=== PATIENT | female | born 1930 | race Caucasian/White ===

== ENCOUNTER → 2016-08-20 | Outpatient (CLI) | payer MEDICARE, OTHER ==
[~2016-08-20] VITALS: Ht 154.9 cm; Wt 52.0 kg
[~2016-08-20] MED LIST: ACET-3088 PO; APIX2.5T PO; ATOR40TA64 PO; CALC1TAB PO; CALC600T12 PO; CITA20TA9 PO; FERR-70 PO; GUAI-1166 PO; LEVO100T12 PO; LORA10TA7 PO; METO25TA6 PO; MIDO2.5T PO; MOME17SP2 EA NOSTRIL; NAPR375T4 PO; OMEP20CA10 PO
== END ==
LOC: RC 09:59
PROVIDERS: ATTEND Internal Medicine Cardiovascular Disease
DX: I48.0 Paroxysmal atrial fibrillation (principal); R94.2 Abnormal results of pulmonary function studies
CPT/HCPCS: 94010

== ENCOUNTER 2016-09-04 10:36 | Day surgery (SDC) | payer MEDICARE, OTHER ==
[~2016-09-04] VITALS: Ht 152.4 cm; Wt 50.8 kg
--- OUTSIDE RECORDS SUMMARY | 2016-09-04 10:42 | XMS REPORT | Continuity of Care Document ---
Author Author [facility] Organization [facility] Address Unknown Phone Unavailable Support Name Relationship Address Phone JESENIA CAMACHO DO Caregiver [address] [place] [address] Unavailable SEBASTIÁN RANDALL MD Caregiver Unknown Unavailable MARCINIGELVIKTOR Next Of Kin [address] [place] [address] Insurance Providers Guarantor Suzette Gomez Address [address] [place] [address] Email DENIED/NO TO PT PORT 16 Payer Eve[place] Policy Number [id number] Subscriber's Name Suzette Gomez Relationship 18 Self Group Number [id number] Payer Medicare Policy Number [id number] Subscriber's Name GuruSuzette Relationship 18 Self Advance Directives Directive Response Recorded Date/Time Ordered Resuscitation Status Full Code, unverified 08/06/16 1:45pm Resuscitation Documents on File Yes 08/07/16 1:05pm DPOA for Healthcare Only Yes 08/07/16 1:05pm Living Will Yes 08/07/16 1:05pm Problems Active Problems Medical Problem Onset Date Status Acute blood loss anemia Unknown Acute Constipation Unknown Acute Constipation Unknown Acute DJD (degenerative joint disease) Unknown Chronic Depression Unknown Chronic Fracture of femoral neck, left, closed Unknown Acute Generalized weakness Unknown Acute Hip pain, acute Unknown Acute History of hemiarthroplasty of left hip 11/09/2014 Acute History of irregular heartbeat Unknown Chronic History of irregular heartbeat Unknown Acute Hyperlipidemia Unknown Chronic Hypokalemia Unknown Acute Hyponatremia Unknown Chronic Hypotension Unknown Resolved Hypothyroidism Unknown Chronic Hypoxia Unknown Acute Leg cramps Unknown Acute Leg cramps Unknown Acute Nausea after anesthesia Unknown Resolved Orthostatic dizziness Unknown Acute Rapid heart rate Unknown Acute Shortness of breath Unknown Acute Past Problems Medical Problem Onset Date Cervical radiculopathy Unknown Left upper extremity numbness Unknown Patient left without being seen Unknown Medications Current Home Medications Medication Dose Units Route Directions Days Qty Instructions Start Date Apixaban (Eliquis) 2.5 Mg Tablet 1 Tab Oral Daily 08/06/16 Atorvastatin Calcium 40 Mg Tablet 1 Tab Oral Bedtime 08/06/16 Calcium Carbonate (Calcium) 600 Mg Tablet 2 Tab Oral Daily Calcium Carbonate/Vitamin D3 (Caltrate 600 + D Tablet) 1 Each Tablet 1 Tab Oral Twice A Day 08/06/16 Citalopram Hydrobromide (Citalopram Hbr) 20 Mg Tablet 20 Mg Oral Daily 02/15/16 Ferrous Sulfate 325 Mg Tablet 325 Mg Oral Daily 01/19/15 Guaifenesin/Dextromethorphan (Robitussin Fcbni-Jjoyq-Elck Dm) 1 Each Capsule 1 Cap Oral As Needed 02/15/16 Levothyroxine Sodium 100 Mcg Tablet 100 Mg Oral Before Breakfast 02/15/16 Loratadine 10 Mg Tablet 10 Mg Oral Before Breakfast Take 1 tablet, by mouth, one time a day (before breakfast). 08/06/16 Metoprolol Tartrate 25 Mg Tablet 25 Mg Oral Twice A Day 01/19/15 Midodrine Hcl 2.5 Mg Tablet 2.5 Mg Oral Daily 02/26/14 Mometasone Furoate (Nasonex) 120 [place]/17 G [place] 2 [place] Each Nostril Daily 08/06/16 Naproxen 375 Mg Tablet 1 Tab Oral Daily 08/06/16 Omeprazole 20 Mg Capsule.dr 20 Mg Oral Before Breakfast Take 1 capsule, by mouth, one time a day (before breakfast). 08/06/16 Past Home Medications Medication Directions Ordered Status Aspirin 81 Mg Tab.chew, 1 Tab Oral Daily 11/09/14 Discontinued Atorvastatin Calcium 10 Mg Tablet, 10 Mg Oral Bedtime 11/09/14 Discontinued Cyclobenzaprine Hcl 10 Mg Tablet, 1 Tab Oral Bedtime 06/28/10 Discontinued Enoxaparin Sodium (Lovenox) 40 Mg/0.4 Ml Inj, 40 Mg Sub-Q Daily 11/13/14 Discontinued Escitalopram Oxalate (Lexapro) 20 Mg Tablet, 1 Tab Oral Daily 06/28/10 Discontinued Hydrocodone/Acetaminophen (Lortab 5-325 Mg Tablet) 1 Each Tablet, 1 Tab Oral Every 6 Hours as needed for Pain 02/26/14 Discontinued Loratadine 10 Mg Tablet, 10 Mg Oral Daily 11/09/14 Discontinued Naproxen (Naprosyn) 500 Mg Tablet, 1 Tab Oral Twice A Day as needed for Pain 06/28/10 Discontinued Ondansetron Hcl/Pf (Ondansetron Hcl 4 Mg/2 Ml Vial) 4 Mg/2 Ml Vial, 4 Mg Intraven Every 6 Hours as needed for Nausea &/Or Vomiting 11/13/14 Discontinued Risedronate (Actonel) 35 Mg Tablet, 1 Tab Oral Weekly 06/28/10 Discontinued Social History Social History Problem Response Recorded Date/Time Onset Date Status Chewing Tobacco Status No 08/06/2016 1:00pm Not Applicable Not Applicable Hx Substance Use No 08/06/2016 1:00pm Not Applicable Not Applicable Hx Alcohol Use No 08/06/2016 1:00pm Not Applicable Not Applicable Has the pt used tobacco in the last 12 months No 08/06/2016 1:00pm Not Applicable Not Applicable Tobacco Usage none 11/14/2014 9:33am Not Applicable Not Applicable Query Response Start Date Stop Date Smoking Status Never smoker Hospital Discharge Instructions No hospital discharge instructions. Plan of Care Discharge Date 08/07/16 4:40pm Prescriptions See Medication Section Functional Status Query Response Date Recorded Ability to complete ADL's impeded by No change August 07, 2016 1:05pm Allergies, Adverse Reactions, Alerts Allergen Type Severity Reaction Status Last Updated No Known Drug Allergies Allergy Unknown Active 08/07/16 Immunizations Query Response on File Recorded Date/Time Hx Influenza Vaccination Y MAR 2016 08/06/16 1:00pm Hx Pneumococcal Vaccination Yes 08/06/16 1:00pm Hx Influenza Vaccination Y MAR 2016 08/06/16 1:00pm Hx Tetanus Diptheria Y CURRENT PER HX OF PREVIOUS VISIT 01/19/15 9:52am Vital Signs Acute Vital Signs Vital Response Date/Time Temperature (Fahrenheit) 97.1 deg F (96.8 - 99.1) 08/07/2016 4:03pm Temperature (Calculated Celsius) 36.38793 degrees C (36.0 - 37.3) 08/07/2016 4:03pm Temperature Source Temporal 08/07/2016 4:03pm Pulse Rate (adult) 58 bpm (60 - 100) 08/07/2016 4:25pm Respiratory Rate 20 breaths/min (10 - 20) 08/07/2016 4:25pm O2 Sat by Pulse Oximetry 95 % (90 - 100) 08/07/2016 4:25pm Oxygen Delivery Method Room Air 08/07/2016 4:25pm Blood Pressure 123/74 mm Hg 08/07/2016 4:25pm Blood Pressure Source Automatic Cuff 08/07/2016 4:25pm Height (Feet) 5 feet 08/07/2016 12:51pm Height (Inches) 1.00 inches 08/07/2016 12:51pm Weight (Kilograms) 51.100 kg 08/07/2016 12:51pm Body Mass Index (BMI) 21.3 08/07/2016 12:51pm Results No known relevant diagnostic tests, laboratory data and/or discharge summary. Procedures Procedure Status Date Provider(s) Cataract extraction, left Completed 08/07/16 SEBASTIÁN RANDALL MD Encounters Encounter Location Arrival/Admit Date Discharge/Depart Date Attending Provider Departed [facility] 08/07/16 11:27am 08/07/16 4 :40pm SEBASTIÁN RANDALL MD
--- OUTSIDE RECORDS SUMMARY | 2016-09-04 10:42 | XMS REPORT | Continuity of Care Document ---
Author Author [facility] Organization [facility] Address Unknown Phone Unavailable Support Name Relationship Address Phone JABARI SOSA MD Caregiver [address] [place] [phone] BRUCE BAEZ MD Caregiver [address] [place] [phone] VIKTOR LOPEZ Next Of Kin [address] [place] [address] Insurance Providers Payer Name Policy Number Subscriber Name Relationship Medicare [id number] Suzette Gomez 19 Self Everencemma [id number] Suzette Gomez 19 Self Advance Directives Directive Response Recorded Date/Time Advanced Directives Type None 02/26/14 2:20pm Problems Medical Problems Problem Onset Date Status Leg cramps Unknown Active Orthostatic dizziness Unknown Active Leg cramps Unknown Active Medications Medication Dose Route Sig Days/Qty Instructions Order Date Discontinued Date Status [Lipitor] 1 PO BEDTIME 10/19/08 Active Escitalopram Oxalate 1 Tab PO DAILY 06/28/10 02/26/14 Discontinued Citalopram Hydrobromide 1 Tab PO DAILY 06/28/10 Active Naproxen 1 Tab PO DAILY 06/28/10 Active Risedronate 1 Tab PO WEEKLY 06/28/10 02/26/14 Discontinued Levothyroxine Sodium 1 Tab PO DAILY 06/28/10 Active Cyclobenzaprine Hcl 1 Tab PO BEDTIME 06/28/10 02/26/14 Discontinued Calcium Carbonate/Vitamin D3 1 Tab PO DAILY 06/28/10 Active Loratadine 10 Mg PO BEFORE BREAKFAST Take 1 tablet, by mouth, one time a day (before breakfast). 02/26/14 Active Midodrine HCl 2.5 Mg PO DAILY 02/26/14 Active Hydrocodone/Acetaminophen 1 Tab PO Every 6 Hours PRN PAIN 02/26/14 Active Social History Social History Problem Response Recorded Date/Time Smoking Status Never smoker 02/26/2014 2:24pm Hx Alcohol Use No 02/26/2014 2:24pm Hospital Discharge Instructions No hospital discharge instructions. Plan of Care No plan of care. Functional Status Query Response Date Recorded Physical Hygiene Self February 26, 2014 2:24pm Disabilities None February 26, 2014 2:24pm Devices Used None February 26, 2014 2:24pm Dressing Self February 26, 2014 2:24pm Ambulation Self February 26, 2014 2:24pm Diet Self February 26, 2014 2:24pm Mental Status Alert Oriented February 26, 2014 5:18pm Disabilities None February 26, 2014 2:24pm Devices Used None February 26, 2014 2:24pm Physical Hygiene Self February 26, 2014 2:24pm Dressing Self February 26, 2014 2:24pm Ambulation Self February 26, 2014 2:24pm Diet Self February 26, 2014 2:24pm Allergies, Adverse Reactions, Alerts Allergen Type Severity Reaction Status Last Updated No Known Drug Allergies Allergy Unknown Active 06/28/10 Immunizations Name Given Type Hx Influenza Vaccination Yes Historical Hx Pneumococcal Vaccination Yes Historical Hx Influenza Vaccination Yes Historical Hx Tetanus Diptheria Y CURRENT Historical Vital Signs Acute Vital Signs Vital Response Date/Time Temperature (Fahrenheit) 96.8 deg F (96.8 - 99.1) Temperature (Calculated Celsius) 36.59694 degrees C (36.0 - 37.3) Pulse Rate (adult) 51 bpm (60 - 100) Respiratory Rate 17 breaths/min (10 - 20) O2 Sat by Pulse Oximetry 100 % (90 - 100) Blood Pressure 160/77 mm Hg Height 5 ft 1 in Weight 126 lb Body Mass Index 23.0 kg/m^2 Results Test Source Date Result Interp. Ref. Range Comments Alanine Aminotransferase (ALT/SGPT) February 26, 2014 3:07pm 31 U/L N 9 -52 Albumin February 26, 2014 3:07pm 4.1 G/DL N 3.5-5.0 Albumin/Globulin Ratio February 26, 2014 3:07pm 1.5 RATIO N 1.1-2.2 Alkaline Phosphatase February 26, 2014 3:07pm 77 U/L N 38-126 Anion Gap February 26, 2014 3:07pm 12 MEQ/L N 5-15 Aspartate Amino Transf (AST/SGOT) February 26, 2014 3:07pm 25 U/L N 14- 36 BUN/Creatinine Ratio February 26, 2014 3:07pm 17 RATIO N 6-26 Basophils # (Auto) February 26, 2014 3:07pm 0.0 T/MM3 N 0-0.2 Basophils (%) (Auto) February 26, 2014 3:07pm 0.5 % N 0-2 Blood Urea Nitrogen February 26, 2014 3:07pm 15.0 MG/DL N 7-17 Calcium Level February 26, 2014 3:07pm 9.6 MG/DL N 8.4-10.2 Calculated Osmolality February 26, 2014 3:07pm 264 MOSM/KG N 261-280 Carbon Dioxide Level February 26, 2014 3:07pm 26 MEQ/L N 22-30 Chloride Level February 26, 2014 3:07pm 98 MEQ/L N 98-107 Conjugated Bilirubin June 28, 2010 10:33am 0.00 MG/DL N 0.00-0.30 Creatinine February 26, 2014 3:07pm 0.9 MG/DL N 0.7-1.2 Eosinophils # (Auto) February 26, 2014 3:07pm 0.1 T/MM3 N 0-0.5 Eosinophils (%) (Auto) February 26, 2014 3:07pm 1.0 % N 0-4 Globulin February 26, 2014 3:07pm 2.8 G/DL N 2.4-3.6 Glucose Level February 26, 2014 3:07pm 125 MG/DL H 65-110 Hematocrit February 26, 2014 3:07pm 40.2 % N 36-46 Hemoglobin February 26, 2014 3:07pm 13.2 GM/DL N 12-16 Lymphocytes # (Auto) February 26, 2014 3:07pm 1.0 T/MM3 N 1-4.8 Lymphocytes (%) (Auto) February 26, 2014 3:07pm 17.2 % L 23-45 Magnesium Level February 26, 2014 3:07pm 2.1 MG/DL N 1.6-2.3 Mean Corpuscular Hemoglobin February 26, 2014 3:07pm 29.1 UUG N 26-34 Mean Corpuscular Hemoglobin Concent February 26, 2014 3:07pm 32.8 GM/DL N 31-37 Mean Corpuscular Volume February 26, 2014 3:07pm 88.7 UM3 N 80-100 Mean Platelet Volume February 26, 2014 3:07pm 8.7 UM3 L 9.4-12.4 Monocytes # (Auto) February 26, 2014 3:07pm 0.6 T/MM3 N 0-0.8 Monocytes (%) (Auto) February 26, 2014 3:07pm 10.6 % H 0-9.0 Neutrophils # (Auto) February 26, 2014 3:07pm 4.3 T/MM3 N 1.8-7.7 Neutrophils (%) (Auto) February 26, 2014 3:07pm 70.5 % H 33-66 Platelet Count February 26, 2014 3:07pm 237 T/MM3 N 130-400 Potassium Level February 26, 2014 3:07pm 4.2 MEQ/L N 3.6-5 RDW Standard Deviation February 26, 2014 3:07pm 44.2 FL N 36.9-50.2 Red Blood Count February 26, 2014 3:07pm 4.53 M/MM3 N 4.00-5.20 Sodium Level February 26, 2014 3:07pm 136 MEQ/L N 134-144 Thyroid Stimulating Hormone (TSH) June 28, 2010 10:33am 3.18 MIU/ML N 0.47-4.68 Total Bilirubin February 26, 2014 3:07pm 0.60 MG/DL N 0.20-1.30 Total Protein February 26, 2014 3:07pm 6.9 G/DL N 6.3-8.2 Troponin I February 26, 2014 3:07pm < 0.012 ng/ml 0-0.12 Unconjugated Bilirubin June 28, 2010 10:33am 0.52 MG/DL N 0.00-1.10 Urine Bilirubin February 26, 2014 4:05pm Negative - Has specimen been collected/obtained? Y Urine Blood February 26, 2014 4:05pm Negative - Has specimen been collected/obtained? Y Urine Collection Type February 26, 2014 4:05pm Voided-not cc-midstr - Has specimen been collected/obtained? Y Urine Color February 26, 2014 4:05pm Yellow - Has specimen been collected/obtained? Y Urine Glucose (UA) February 26, 2014 4:05pm Negative - Has specimen been collected/obtained? Y Urine Ketones February 26, 2014 4:05pm Negative - Has specimen been collected/obtained? Y Urine Leukocyte Esterase February 26, 2014 4:05pm Negative - Has specimen been collected/obtained? Y Urine Nitrite February 26, 2014 4:05pm Negative - Has specimen been collected/obtained? Y Urine Protein February 26, 2014 4:05pm Negative - Has specimen been collected/obtained? Y Urine Specific [place] February 26, 2014 4:05pm <=1.005 L - Has specimen been collected/obtained? Y Urine Turbidity February 26, 2014 4:05pm Clear - Has specimen been collected/obtained? Y Urine Urobilinogen February 26, 2014 4:05pm 0.2 EU/DL - Has specimen been collected/obtained? Y Urine pH February 26, 2014 4:05pm 6.0 - Has specimen been collected/ obtained? Y White Blood Count February 26, 2014 3:07pm 6.0 T/MM3 N 4.5-11.0 Chemistry Specimen Hemolysis February 26, 2014 3:07pm < 15 0-25 0-25 : No Hemolysis.26-70: Slight Hemolysis - can falsely elevate K and Urine Protein. 71-285: Moderate Hemolysis - can falsely elevate K, Troponin I, CA 19-9, PTH, CSF GLucose, and Urine Protein, and can falsely decrease Phenytoin. 286-999: Gross Hemolysis - can falsely elevate K, Troponin I, CA 19-9, PTH, CSF Glucose, and Urine Protine, and can falsely decrease Phenytoin. Recommend specimen recollection. Urinalysis Comment February 26, 2014 4:05pm Microscopic not ind. - Has specimen been collected/obtained? Y Turbidity February 26, 2014 3:07pm < 20 0-20 Glomerular Filtration Rate Calc February 26, 2014 3:07pm 60 - Immature Granulocyte # (Auto) February 26, 2014 3:07pm 0.01 T/MM3 N 0.00-0.03 Immature Granulocyte % (Auto) February 26, 2014 3:07pm 0.2 % N 0.0-0.5 Icterus Index February 26, 2014 3:07pm < 2 0-7 Urine Microscopic Not Indicated June 28, 2010 10:35am Not indicated - Has specimen been collected/obtained? Y Procedures No known history of procedures. Encounters Encounter Location Date/Time Departed Emergency Room [facility] 02/26/14 10:37am Recent Diagnosis
--- OUTSIDE RECORDS SUMMARY | 2016-09-04 10:43 | XMS REPORT | Continuity of Care Document ---
Author Author [facility] Organization [facility] Address Unknown Phone Unavailable Allergies Medications Problems Procedures Results Encounters ACCT No. Visit Date/Time Discharge Status Pt. Type Provider Facility Loc./Unit Complaint [id number] 08/13/2013 09:19:00 08/13/2013 23 :59:59 CLS Outpatient [id number] 04/15/2013 10:30:00 04/15/2013 23 :59:59 CLS Outpatient
[2016-09-04 10:52] VITALS: Ht 152.4 cm; Wt 50.8 kg
[2016-09-04 10:54] VITALS: BP 152/69; PULSE 54; RESP 16; TEMP 98.1; O2SAT 97
[2016-09-04] MEDS: NEPAFENAC 0.1% EYE DROPS 3ml RIGHT EYE SCH ×3 (11:26→11:38)
[2016-09-04] MEDS: PHENYLEPHRINE 2.5% EYE DROPS 5ml RIGHT EYE SCH ×3 (11:27→11:38)
[2016-09-04] MEDS: CYCLOPENTOLATE 2% EYE DROPS 2ml RIGHT EYE SCH ×3 (11:27→11:38)
[2016-09-04] MEDS: MOXIFLOXACIN 0.5% EYE DROPS 3ml RIGHT EYE SCH ×3 (11:27→11:38)
[2016-09-04] MEDS: PROPARACAINE 0.5% EYE DROPS 15ml RIGHT EYE SCH ×3 (11:27→11:39)
[2016-09-04] MEDS: TROPICAMIDE 1% EYE DROPS 3ml RIGHT EYE SCH ×3 (11:29→11:38)
--- NOTE | 2016-09-04 11:51 | ANESPREOP ---
Anesthesia Record Date and Time DATE: 09/04/16 TIME: 11:50 Pre-Op Diagnosis cataract od Proposed Surgical Procedure PE WITH IOL OD NPO since: 0500 Allergies: Coded Allergies: No Known Drug Allergies (Unverified Allergy, Unknown, 08/07/16) Ht/Wt/BMI Height: 5 ' 0.00 " Weight: 50.800 kg BMI: 21.9 kg/m2 Vital Signs Date Time Temp Pulse Resp B/P Pulse Ox O2 Delivery O2 Flow Rate FiO2 09/04/16 10:54 98.1 54 16 152/69 97 Room Air Medications Inpatient Medications Current Medications Medications (Trade) Dose Ordered Sig/Layne Start Time Stop Time Status Last Admin Dose Admin Cyclopentolate HCl (Cyclogyl 2%) 1 drop Q5M 09/04/16 16:00 09/04/16 16:11 09/04/16 11:38 1 DROP Tropicamide (Mydriacyl 1% Eye Drops) 1 drop Q5M 09/04/16 16:00 09/04/16 16:11 09/04/16 11:38 1 DROP Proparacaine HCl (Alcaine 0.5% Eye Drops) 1 drop Q5M 09/04/16 16:00 09/04/16 16:11 09/04/16 11:39 1 DROP Phenylephrine HCl (Nader-Synephrine 2.5% Eye Drops) 1 drop Q5M 09/04/16 16:00 09/04/16 16:11 09/04/16 11:38 1 DROP Tetracaine HCl (Tetracaine 0.5% Eye Drops) 1 drop PRN PRN 09/04/16 16:00 Moxifloxacin HCl (Vigamox) 1 drop Q5M 09/04/16 16:00 09/04/16 16:11 09/04/16 11:38 1 DROP Nepafenac (Nevanac 0.1% Eye Drops) 1 drop Q5M 09/04/16 16:00 09/04/16 16:11 09/04/16 11:38 1 DROP Acetaminophen (Tylenol Arthritis) 650 Mg Tablet.er, 2 TAB PO Q8HPRN PRN for PAIN , (Reported) Last Taken: on Unknown Date & Time Apixaban (Eliquis) 2.5 Mg Tablet, 1 TAB PO DAILY, (Reported) Last Taken: on 09/04/16 0700 Atorvastatin Calcium (Atorvastatin Calcium) 40 Mg Tablet, 1 TAB PO HS, (Reported) Last Taken: on 09/03/16 0800 Calcium Carbonate/Vitamin D3 (Caltrate 600 + D Tablet) 1 Each Tablet, 1 TAB PO BID, (Reported) Last Taken: on 09/03/16 0800 Citalopram Hydrobromide (Citalopram HBr) 20 Mg Tablet, 20 MG PO DAILY, (Reported) Last Taken: on 09/03/16 0800 Ferrous Sulfate (Ferrous Sulfate) 325 Mg Tablet , 325 MG PO DAILY, (Reported) Last Taken: on 09/03/16 0800 Guaifenesin/Dextromethorphan (Robitussin Cough- Chest-Cal Dm) 1 Each Capsule, 1 CAP PO PRN, (Reported) Last Taken: on Unknown Date & Time Levothyroxine Sodium (Levothyroxine Sodium) 100 Mcg Tablet, 100 MG PO ACB, (Reported) Last Taken: on 09/04/16 0700 Metoprolol Tartrate (Metoprolol Tartrate) 25 Mg Tablet, 25 MG PO BID, (Reported) Last Taken: on 09/04/16 0800 Midodrine HCl (Midodrine HCl) 2.5 Mg Tablet, 2.5 MG PO DAILY, (Reported) Last Taken: on 09/03/16 Mometasone Furoate (Nasonex) 120 [place]/17 G [place], 2 SPRAY EA NOSTRIL DAILY, (Reported) Last Taken: on 09/03/16 Naproxen (Naproxen) 375 Mg Tablet, 1 TAB PO DAILY, (Reported) Last Taken: on 09/03/16 Currently on Beta Yonathan: Yes Beta Yonathan Last Taken: 09/03/16 0800 Medical/Surgical History Anesthesia PMH: Reports: *Hypertension, Arthritis (GENERALIZED), CVA/Stroke/ TIA (MAR 2016, Left sided weakness), Cancer (SKIN CA), Cardiac Arrythmia (hx afib), Reflux, Thyroid Disease (PER H&P), Denies: *Diabetes, *NE, Anesthesia Reactions (NO AIRWAY ISSUES), Asthma, CHF, COPD, Clotting Problems, Glaucoma, Malignant Hyperthermia, Pacemaker, Pneumonia, Renal Disease, Seizures, Sleep Apnea Smoking Status: Never smoker Has pt. smoked today?: No Use Chewing Tobacco?: No Second Hand Exposure: No Substance Use Type: does not use Alcohol Intake: none Last Drink: hours (ago) Past Surgical History Orthopedic Surgeries: Yes - left HIP SURGERY Abdominal Surgeries: No Genitourinary Surgeries: No Cardiac Surgeries: No Endocrine Surgeries: No Reproductive Surgeries: No Neurological Surgeries: No Ear Surgeries: No Nose Surgeries: Yes Throat Surgeries: No Other Surgeries: Yes - HEMRHOIDECTOMY,CATARACTS Anesthesia Adverse Reactions: FOUND none Pertinent Findings EKG Rhythm: Sinus Rhythm Physical Exam Respiratory: Lungs clear Cardiovascular: FOUND Regular rate, rhythm, FOUND Systolic murmur Airway Assessment Mallampati Score: II TMD: 3 Fingerbreadths Neck Extension: Fair Teeth: Chipped Teeth/Crowns Overall Assessment: No Airway Concerns ASA: 3 Plan Anesthesia Plan: MAC Discussion Discussed risks/options/alternatives of anesthesia and questions answered. Patient consents. Nursing pain assessment noted. Attestation Statement Prior to the delivery of any anesthetic medication, I examined the patient, developed the plan, obtained the patient's consent and discussed the risk and benefits of the procedure with the patient/guardian. TARAH SHAH I RADIATION PROTECTION SPECIALIST Sep 04, 2016 11:51
[2016-09-04] MEDS ORDERED: SALINE FLUSH 10ml SYRINGE ONE ×2 (13:25→14:17)
[2016-09-04] MEDS ORDERED: MIDAZOLAM 2mg/2ml INJECTION ONE ×2 (13:25→14:16)
[2016-09-04 13:56] VITALS: BP 186/84; PULSE 49; RESP 18; TEMP 98; O2SAT 98
--- NOTE | 2016-09-04 13:58 | ANESPO ---
Post-Op Note Date 09/04/16 Time: 13:59 Status Pt Participated in Evaluation: Pt participated in person Vital Signs Date Time Temp Pulse Resp B/P Pulse Ox O2 Delivery O2 Flow Rate FiO2 09/04/16 10:54 98.1 54 16 152/69 97 Room Air Respiratory Function: Airway patent, Regular respirations Cardiovascular Function: Regular pulse Mental Status: Alert/oriented Pain Level Intensity: 0 Hydration: Taking po fluids Complications during Recovery None apparent Follow-Up Instructions Instructions Per Surgeon TARAH SHAH I BACKEND PYTHON DEVELOPER Sep 04, 2016 13:58
[2016-09-04] MEDS ORDERED: MOXIFLOXACIN 0.5% EYE DROPS 3ml BOTH EYES ONE (14:00)
[2016-09-04] MEDS ORDERED: CYCLOPENTOLATE 2% EYE DROPS 2ml BOTH EYES ONE (14:00)
[2016-09-04] MEDS ORDERED: TETRACAINE 0.5% EYE DROPS 4ml BOTTLE OP ONE (14:00)
[2016-09-04] MEDS ORDERED: BRIMONIDINE 0.2% EYE DROPS 5ml BOTH EYES ONE (14:00)
[2016-09-04] MEDS ORDERED: NEPAFENAC 0.1% EYE DROPS 3ml OP ONE (14:00)
[2016-09-04] MEDS ORDERED: NS FOR INJ. 20 ML VIAL INJ ONE (14:00)
[2016-09-04] MEDS ORDERED: LIDOCAINE 1% (10mg/ml) 30ml SDV IJ ONE (14:00)
[2016-09-04] MEDS ORDERED: PROPARACAINE 0.5% EYE DROPS 15ml OP ONE (14:00)
[2016-09-04] MEDS ORDERED: TROPICAMIDE 1% EYE DROPS 3ml OP ONE (14:00)
[2016-09-04] MEDS ORDERED: VANCOMYCIN 500 MG INJECTION IV ONE (14:00)
[2016-09-04 14:11] VITALS: BP 174/80; PULSE 50; RESP 16; O2SAT 98
[2016-09-04 14:26] VITALS: BP 152/69; PULSE 55; RESP 16; TEMP 97.2; O2SAT 99
[2016-09-04] MEDS ORDERED: TETRACAINE 0.5% EYE DROPS 4ml BOTTLE RIGHT EYE PRN (16:00)
[2016-09-04] MEDS ORDERED: LIDOCAINE 1% (10mg/ml) 2ml SDV INJ ONE (16:00)
--- NOTE | 2016-09-09 11:27 | OPNOTEF ---
DATE OF PROCEDURE 09/04/2016 PREOPERATIVE DIAGNOSIS Cataract, right eye. POSTOPERATIVE DIAGNOSIS Cataract, right eye. PROCEDURE Phacoemulsification with implantation of 22.0 diopter intraocular lens model [id number], right eye. ANESTHESIA Topical block monitored by Toney Caballero CRNA. SURGEON Louis Wells MD PROCEDURE IN DETAIL The patient came to the [facility] and was escorted to the preanesthesia area where the appropriate monitoring, eyedrops, and topical anesthetic were administered. The patient was then taken into the operating room and the eye was prepped and draped in the standard sterile manner for ophthalmic surgery. A lid speculum was placed between the lids and the eye was irrigated with 5% Povidine iodine solution, followed by copious irrigation with sterile balanced salt solution after three minutes. The eye surgery began with the initial side port incision through the peripheral clear cornea. Lidocaine preservative free 1% was injected into the anterior chamber. Viscoelastic was exchanged for aqueous. A clear cornea incision was made just anterior to the vascular arcade with a steel keratome blade. A continuous curvilinear anterior capsulorrhexis was performed, followed by hydrodissection and hydrodelineation of the cataract. The phacoemulsification tip was then inserted through the incision into the anterior chamber, and the nucleus of the cataract was emulsified. The remaining cortical material was then aspirated and the posterior capsule was cleaned and polished. A posterior chamber intraocular lens was then implanted into the capsular bag with viscoelastic support. The viscoelastic was then removed from the eye by aspiration. The clear cornea incision was inspected to ensure a water tight seal. The lid speculum was removed. Vigamox, Nevanac, and Brimonidine eyedrops were instilled onto the eye and an eye shield was taped over the eye. The patient was dismissed to the responsible republican with postoperative instructions and a planned follow-up visit. CARLY
== END 2016-09-04 14:33 | disposition home or self-care (01) ==
LOC: NSC 10:36
PROVIDERS: ATTEND Ophthalmology
DX: H25.13 Age-related nuclear cataract, bilateral (principal); I10 Essential (primary) hypertension; Z86.73 Personal history of transient ischemic attack (TIA), and cerebral infarction without residual deficits; E07.9 Disorder of thyroid, unspecified; M81.0 Age-related osteoporosis without current pathological fracture; I48.91 Unspecified atrial fibrillation; Z79.899 Other long term (current) drug therapy
CPT/HCPCS: 66984; A9270; C1780; J2250; J3370

== ENCOUNTER 2017-09-24 17:37 | Inpatient (IN) ==
[2017-09-24] MEDS ORDERED: NS 1,000 ML IV ONE (18:01)
--- NOTE | 2017-09-24 18:09 | Emergency Department Report ---
Weakness HPI - General Chief complaint: Weakness Stated complaint: WEAKNESS Time Seen by Provider: 09/24/17 17:52 Source: patient, family, EMS Mode of arrival: EMS Limitations: no limitations - History of Present Illness HPI Narrative: Patient had a fall 2 days ago secondary to "blacking out, and was seen in the ER at that time. Patient's evaluation with CT lab and full examination with observation in the ER was essentially negative. The patient was dismissed in stable condition to follow up with her primary care physician. However over the past 48 hours the patient has had profound weakness, to the point that she's been unable to get out of bed. She admits that she's had very little food or fluids, and when a neighbor checked on her today, found her to be significantly confused and her depth of weakness seemed profound. She was able to get a hold of Dr. Hartmann, her primary care physician, and was directed to the ER for evaluation. The patient is alert, but is mildly confused, slow to answer, and only complains of generalized weakness. - Related Data Home Medications Medication Instructions Recorded Confirmed Apixaban [Eliquis] 2.5 mg PO BID #0 08/06/16 09/24/17 Atorvastatin Calcium 40 mg PO HS #0 tab 08/06/16 09/24/17 Calcium Carbonate/Vitamin D3 1 tab PO BID #0 08/06/16 09/24/17 [Caltrate 600 Plus D3 Tablet] Amiodarone [Pacerone] 200 mg PO DAILY 01/31/17 09/24/17 Ascorbate Calcium [Vitamin C] 500 mg PO BID 01/31/17 09/24/17 Levothyroxine Tab [Synthroid] 112 mcg PO ACB 01/31/17 09/24/17 Multivitamin [One Daily 1 tab PO DAILY 01/31/17 09/24/17 Multivitamin] Pantoprazole Tab [Protonix Tab] 40 mg PO ACB 01/31/17 09/24/17 Vitamin E 200 unit PO DAILY 01/31/17 09/24/17 Citalopram [Celexa] 20 mg PO DAILY 07/15/17 09/24/17 Cetirizine HCl [All Day Allergy] 10 mg PO DAILY 08/18/17 09/24/17 Naproxen Sodium [Aleve] 220 mg PO BID PRN 08/18/17 09/24/17 Allergies Allergy/AdvReac Type Severity Reaction Status Date / Time No Known Drug Allergies Allergy Unknown Verified 09/24/17 17:55 Review of Systems All systems: reviewed and negative except as stated Constitutional: Reports: weakness. Denies: fever, chills, weight change, night sweats Eyes: Denies: eye pain, eye discharge, vision change Cardiovascular: Denies: chest pain, palpitations, dyspnea on exertion, orthopnea , edema, syncope, paroxysmal nocturnal dyspnea Respiratory: Denies: cough, dyspnea, wheezes, hemoptysis Gastrointestinal: Denies: abdominal pain, nausea, vomiting, diarrhea, constipation, hematemesis, melena, hematochezia Genitourinary: Denies: urgency, dysuria, frequency, hematuria Musculoskeletal: Denies: back pain, joint swelling, arthralgia Integumentary: Denies: non-healing lesions, rash, swelling, wounds, jaundice Neurological: Denies: headache, weakness, numbness, confusion, abnormal gait, vertigo Psychiatric: Denies: anxiety, depression, suicidal thoughts Endocrine: Denies: fatigue, heat or cold intolerance, polydipsia Hematological/Lymphatic: Denies: easy bleeding, easy bruising, lymphadenopathy Allergic/Immunologic: Denies: facial swelling, urticaria, itchy eyes PFSH Patient Stated Medical History 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 Mohs excision of basal cell carcinoma of central nasal dorsum, with full thickness skin graft closure; Destruction via electrodesiccation of actinic keratoses of bilateral forearms, left hand, ulnar border (x4 total): 07/16/16 Family History: Family History (Last Reviewed 08/26/17 @ 10:55 by Susie Galloway RN) Mother No significant family history - Social History Smoking status: Never smoker second hand exposure: No Substance use type: does not use Alcohol intake frequency: does not drink Does patient use chewing tobacco?: No Physical Exam - Limitations Limitations: no limitations - General General appearance: alert - Normal Exams: Head:: Normocephalic without trauma Eyes:: Pupils are PERRLA w/ EOMI (weak appearing), No scleral icterus, irritation, or foreign bodies noted ENMT:: No facial trauma, nasal exudates, pharyngeal erythema, or exudates are noted Neck:: Full range of motion, without adenopathy, JVD, bruits or thyromegaly Chest/Respirations:: Clear all mancera, with good airflow, and symmetry bilaterally Cardiovascular:: Regular rate and rhythm, without murmur or gallop, Pulses 2+ all extremities, capillary refill, <2 seconds all extremities Abdomen:: Bowel sounds positive, soft, non-tender, non-distended, no hepatosplenomegaly, masses or bruits noted Lymphatic:: No lymphadenopathy, or lymphedema noted Musculoskeletal:: No tenderness, or deformity noted, good range of motion, all extremities Integumentary:: No rashes, hives, or bruising noted, hair and nails, without abnormality Neurological:: Patient is alert, and oriented, cranial nerves, motor/sensory/ cerebellar, exams w/o gross deficits, to observation Psychiatric:: Patient exhibits, appropriate attention, emotion and affect - ENT ENT exam: Present: mucous membranes dry Course Vital Signs Temperature 100.1 F 09/24/17 17:39 Pulse Rate 65 09/24/17 17:39 Respiratory Rate 19 09/24/17 17:39 Blood Pressure 159/75 H 09/24/17 17:39 Pulse Oximetry 91 09/24/17 17:39 Temperature 100.1 F 09/24/17 17:39 Pulse Rate 65 09/24/17 17:39 Respiratory Rate 19 09/24/17 17:39 Blood Pressure 159/75 H 09/24/17 17:39 Pulse Oximetry 91 09/24/17 17:39 Weakness - MDM Narrative Medical decision making narrative: Patient is given 1 L normal saline IV fluid bolus CBC - n CMP - no abnormalities including low sodium, elevated liver enzymes, and mild electrolyte abnormalities consistent with dehydration CT head - age-related atrophy, no acute findings EKG - normal sinus rhythm without ischemia, ectopy, or infarction Troponin - negative Lactate normal Case is discussed with Dr. Crabtree, we'll admit inpatient for influenza A with dehydration and hyponatremia - Lab Data Result diagrams: 09/24/17 18:30 09/24/17 18:30 Lab Results 09/24/17 09/24/17 09/24/17 Range/Units 18:30 18:30 18:30 WBC 6.2 (4.5-11.0) T/MM3 RBC 4.23 (4.00-5.20) M/MM3 Hgb 12.9 (12-16) GM/DL Hct 37.8 (36-46) % MCV 89.4 (80-100) UM3 MCH 30.5 (26-34) UUG MCHC 34.1 (31-37) GM/DL RDW Std Deviation 43.0 (36.9-50.2) FL Plt Count 122 L (130-400) T/MM3 MPV 9.0 L (9.4-12.4) UM3 Immature Gran % (Auto) Not performed Neut % (Auto) 79.5 H (33-66) % Lymph % (Auto) 13.0 L (23-45) % [place] % (Auto) 7.3 (0-9.0) % Eos % (Auto) 0.0 (0-4) % Baso % (Auto) 0.2 (0-2) % Neut # (Auto) 4.9 (1.8-7.7) T/MM3 Lymph # (Auto) 0.8 L (1-4.8) T/MM3 [place] # (Auto) 0.5 (0-0.8) T/MM3 Eos # (Auto) 0.0 (0-0.5) T/MM3 Baso # (Auto) 0.0 (0-0.2) T/MM3 Abs Immat Gran (auto) Not performed Turbidity < 20 (0-20) Sodium 128 L (134-144) MEQ/L Potassium 3.7 (3.6-5) MEQ/L Chloride 93 L (98-107) MEQ/L Carbon Dioxide 26 (22-30) MEQ/L Anion Gap 9 (5-15) MEQ/L BUN 13.0 (7-17) MG/DL Creatinine 0.6 L D (0.7-1.2) mg/dL GFR Calculation 95 BUN/Creatinine Ratio 22 (6-26) RATIO Glucose 99 (65-110) MG/DL Calculated Osmolality 247 L (261-280) MOSM/KG Calcium 8.2 L D (8.4-10.2) MG/DL Total Bilirubin 1.10 (0.20-1.30) MG/DL Conjugated Bilirubin 0.00 (0.00-0.30) mg/dL Unconjugated Bilirubin 0.40 (0.00-1.1) mg/dL Icterus Index < 2 (0-7) AST 2582 H D (14-36) U/L ALT 2947 H D (1-35) U/L Alkaline Phosphatase 71 (38-126) U/L Troponin I < 0.012 (0-0.12) ng/ml Total Protein 6.0 L (6.3-8.2) g/dL Albumin 3.4 L (3.5-5.0) g/dL Globulin 2.6 (2.4-3.6) G/DL Albumin/Globulin Ratio 1.3 (1.1-2.2) RATIO Plasma Lactate 1.5 (0.6-2.2) MMOL/L Specimen Hemolysis 21 (0-25) Ur Collection Type Urine Color (YELLOW) Urine Clarity Urine pH (5.0-8.0) Ur Specific [place] (1.015-1.025) Urine Protein (NEGATIVE) Urine Glucose (UA) (NEGATIVE) Urine Ketones (NEGATIVE) Urine Occult Blood (NEGATIVE) Urine Nitrate (NEGATIVE) Urine Bilirubin (NEGATIVE) Urine Urobilinogen (NORMAL) EU/DL Ur Leukocyte Esterase (NEGATIVE) Urine RBC (0-3) /HPF Urine WBC (0-5) /HPF Ur Squamous Epith Cells Urine Bacteria (NEGATIVE) Urine Mucus Ur Culture Indicated? Influenza Type A (PCR) Positive A* (Negative) Influenza Type B (PCR) Negative (Negative) 09/24/17 Range/Units 19:14 WBC (4.5-11.0) T/MM3 RBC (4.00-5.20) M/MM3 Hgb (12-16) GM/DL Hct (36-46) % MCV (80-100) UM3 MCH (26-34) UUG MCHC (31-37) GM/DL RDW Std Deviation (36.9-50.2) FL Plt Count (130-400) T/MM3 MPV (9.4-12.4) UM3 Immature Gran % (Auto) Neut % (Auto) (33-66) % Lymph % (Auto) (23-45) % [place] % (Auto) (0-9.0) % Eos % (Auto) (0-4) % Baso % (Auto) (0-2) % Neut # (Auto) (1.8-7.7) T/MM3 Lymph # (Auto) (1-4.8) T/MM3 [place] # (Auto) (0-0.8) T/MM3 Eos # (Auto) (0-0.5) T/MM3 Baso # (Auto) (0-0.2) T/MM3 Abs Immat Gran (auto) Turbidity (0-20) Sodium (134-144) MEQ/L Potassium (3.6-5) MEQ/L Chloride (98-107) MEQ/L Carbon Dioxide (22-30) MEQ/L Anion Gap (5-15) MEQ/L BUN (7-17) MG/DL Creatinine (0.7-1.2) mg/dL GFR Calculation BUN/Creatinine Ratio (6-26) RATIO Glucose (65-110) MG/DL Calculated Osmolality (261-280) MOSM/KG Calcium (8.4-10.2) MG/DL Total Bilirubin (0.20-1.30) MG/DL Conjugated Bilirubin (0.00-0.30) mg/dL Unconjugated Bilirubin (0.00-1.1) mg/dL Icterus Index (0-7) AST (14-36) U/L ALT (1-35) U/L Alkaline Phosphatase (38-126) U/L Troponin I (0-0.12) ng/ml Total Protein (6.3-8.2) g/dL Albumin (3.5-5.0) g/dL Globulin (2.4-3.6) G/DL Albumin/Globulin Ratio (1.1-2.2) RATIO Plasma Lactate (0.6-2.2) MMOL/L Specimen Hemolysis (0-25) Ur Collection Type Urine, void-cc/notcc Urine Color Yellow (YELLOW) Urine Clarity Clear Urine pH 6.5 (5.0-8.0) Ur Specific [place] 1.015 (1.015-1.025) Urine Protein 1+ A (NEGATIVE) Urine Glucose (UA) Negative (NEGATIVE) Urine Ketones Negative (NEGATIVE) Urine Occult Blood 1+ A (NEGATIVE) Urine Nitrate Negative (NEGATIVE) Urine Bilirubin Negative (NEGATIVE) Urine Urobilinogen 4.0 A (NORMAL) EU/DL Ur Leukocyte Esterase Negative (NEGATIVE) Urine RBC 0-1 (0-3) /HPF Urine WBC 1-3 (0-5) /HPF Ur Squamous Epith Cells 0-5 Urine Bacteria Trace H (NEGATIVE) Urine Mucus Present Ur Culture Indicated? Cult not indicated Influenza Type A (PCR) (Negative) Influenza Type B (PCR) (Negative) Disposition Clinical Impression: Influenza A, Dehydration, Hyponatremia Disposition: 02 To [facility] [place] Acute Care Condition: Stable Prescriptions: No Action Apixaban [Eliquis] 2.5 mg PO BID #0 Ascorbate Calcium [Vitamin C] 500 mg PO BID Vitamin E 200 unit PO DAILY Levothyroxine Tab [Synthroid] 112 mcg PO ACB Pantoprazole Tab [Protonix Tab] 40 mg PO ACB Naproxen Sodium [Aleve] 220 mg PO BID PRN PRN Reason: Pain Cetirizine HCl [All Day Allergy] 10 mg PO DAILY Atorvastatin Calcium 40 mg PO HS #0 tab Calcium Carbonate/Vitamin D3 [Caltrate 600 Plus D3 Tablet] 1 tab PO BID #0 Multivitamin [One Daily Multivitamin] 1 tab PO DAILY Amiodarone [Pacerone] 200 mg PO DAILY Citalopram [Celexa] 20 mg PO DAILY Referrals: Laura Hartmann MD [Family Provider] - - Seen By: physician
[2017-09-24] MEDS: SALINE FLUSH 10ml SYRINGE IVF PRN (18:30)
[2017-09-24] MEDS ORDERED: ONDANSETRON 4 MG/2 ML INJECTION IVP PRN (20:33)
[2017-09-24] MEDS ORDERED: METOCLOPRAMIDE 10mg/2ml INJECTION IVP PRN (20:33)
[2017-09-24] MEDS ORDERED: MORPHINE SULFATE 2mg INJ IVP PRN (20:46)
--- NOTE | 2017-09-24 20:52 | History & Physical Report ---
History of Present Illness Date: 09/24/17 Chief complaint: weakness HPI: Please note that the patient was seen via telemedicine with nursing assistance. Ms. Garvey is an 87yo woman with h/o afib, hypothyroidism, dyslipidemia, CVA with no residual loss of function, and DJD s/p hip replacement presenting with weakness. Friday09/22/2017 had a fall ?syncope and see ED documentation. Sent home after IVF but still weak the last 2 days, not getting out of bed but no more syncope. No pain or nausea, but dyspepsia currently recognized with stool since friday. No CP or SOB. No definite med changes. Friend went to check on her today and patient did not answer the door and was confused. Daughter in law's sister is at the bedside currently and assisting with history (she is a [employer] nurse). Review of Systems ROS unobtainable: due to mental status All systems PM: 10-point ROS was reviewed, no additional remarkable complaints except Past Medical History Medical History: Medical History (Last Reviewed 08/26/17 @ 10:55 by Susie Galloway RN) Tachycardia (Acute) Cerebrovascular accident (Resolved) Depressive disorder GERD (gastroesophageal reflux disease) Onset Date: ~2015 Hypothyroidism Surgical History: Left hip arthroscopy. Mohs excision of basal cell carcinoma of central nasal dorsum, with full thickness skin graft closure; Destruction via electrodesiccation of actinic keratoses of bilateral forearms, left hand, ulnar border (x4 total): 07/16/16 Family History: Family History (Last Reviewed 08/26/17 @ 10:55 by Susie Galloway RN) Mother No significant family history Family History Updates: cannot tell me currently Family History: Unable to Obtain - Social History Smoking status: Never smoker Substance use type: does not use Alcohol intake frequency: does not drink Housing: house Medications Home Medications Medication Instructions Recorded Confirmed Type Apixaban [Eliquis] 2.5 mg PO BID #0 08/06/16 09/24/17 History Atorvastatin Calcium 40 mg PO HS #0 tab 08/06/16 09/24/17 History Calcium Carbonate/Vitamin D3 1 tab PO BID #0 08/06/16 09/24/17 History [Caltrate 600 Plus D3 Tablet] Amiodarone [Pacerone] 200 mg PO DAILY 01/31/17 09/24/17 History Ascorbate Calcium [Vitamin C] 500 mg PO BID 01/31/17 09/24/17 History Levothyroxine Tab [Synthroid] 112 mcg PO ACB 01/31/17 09/24/17 History Multivitamin [One Daily 1 tab PO DAILY 01/31/17 09/24/17 History Multivitamin] Pantoprazole Tab [Protonix Tab] 40 mg PO ACB 01/31/17 09/24/17 History Vitamin E 200 unit PO DAILY 01/31/17 09/24/17 History Citalopram [Celexa] 20 mg PO DAILY 07/15/17 09/24/17 History Cetirizine HCl [All Day Allergy] 10 mg PO DAILY 08/18/17 09/24/17 History Naproxen Sodium [Aleve] 220 mg PO BID PRN 08/18/17 09/24/17 History Allergies Allergy/AdvReac Type Severity Reaction Status Date / Time No Known Drug Allergies Allergy Unknown Verified 09/24/17 17:55 Exam Vital Signs: Temperature 100.1 F 09/24/17 17:39 Pulse Rate 56 L 09/24/17 20:17 Respiratory Rate 19 09/24/17 20:17 Blood Pressure 143/65 H 09/24/17 20:17 Pulse Oximetry 92 09/24/17 20:17 - Constitutional Present: no acute distress - Routine HEENT Exam Head: Present: normocephalic, atraumatic Eye: Present: EOMI ENT: Present: mucous membranes dry - Routine Neck Exam Absent: JVD - Routine Respiratory Exam Present: CTA bilaterally Comments: poor effort - Routine Cardiovascular Exam Present: no murmur Comments: seems irr irr currently - Routine Abdominal Exam Present: soft, normoactive bowel sounds, non tender - Routine Extremities Exam Absent: cyanosis, clubbing - Routine Skin Exam Absent: jaundice - Routine Neurological Exam Present: alert, CN II-XII intact - Routine Psychiatric Exam Comments: no lateralizing signs, but not fully oriented with her not knowing the day of the week and not able to answer all questions Results - Labs CBC & Chem 7: 09/24/17 18:30 09/24/17 18:30 Assessment and Plan (1) Transaminitis Current visit: Yes Status: Acute (2) Acute metabolic encephalopathy Current visit: Yes Status: Acute (3) Influenza A Current visit: Yes Status: Acute (4) Dehydration Current visit: Yes Status: Acute (5) Hyponatremia Current visit: Yes Status: Acute Assessment and Plan: 1. Acute transaminitis--full admission and hold all nephrotoxic drugs ( amiodarone et al). Check synthetic function of liver now and after hydration overnight. May need transfer if does not improve. Check viral hepatitis panel. Not cholestatic and no h/o liver disease. Clear liquids only. Famotidine with understandable dyspepsia. 2. Acute hyponatremia with recent water intake. NS and recheck. 3. Acute metabolic encephalopathy due to the above. Monitor for infection. 4. h/o afib--hold DOAC and amiodarone. 5. Dyslipidemia with h/o CVA--hold statin. 6. Hypothyroidism--continue levothyroxine. 7. DJD s/p hip replacement Family to assist with code status confirmation. DVT Prophylaxis: SCD's - Physician Narrative Narrative: Date: 09/24/17 Time: 2048 Hospital Course Summary Disclaimer: The visit summary below is not to be considered part of the above Progress Note.
[2017-09-24] MEDS: FAMOTIDINE 20 MG TABLET PO SCH (21:27)
[2017-09-24] MEDS ORDERED: ALBUTEROL/IPRATROPIUM 2.5mg-0.5mg/3ml NEB AEROSOL PRN (21:28)
[2017-09-24] MEDS: NS 1,000 ML IV SCH (21:31)
[2017-09-25] MEDS: LEVOTHYROXINE 112 MCG TABLET PO SCH (06:13)
[2017-09-25] MEDS: NS 1,000 ML IV SCH (07:40)
--- NOTE | 2017-09-25 08:00 | CT Scan Report ---
Indication: severe weakness and confusion after a fall 2 days ago PROCEDURE: CT head/brain wo con: Encounter: Initial Comparison: September 22, 2017 Technique: Axial CT images through the head were performed without contrast. Iterative Reconstruction dose reducing technique was utilized. FINDINGS: Generalized atrophy. The ventricles are stable. There are extensive areas of low attenuation in the white matter which most likely represent changes from chronic microvascular ischemia. The brainstem, cerebellum, and cerebral hemispheres otherwise have a normal morphology and CT attenuation. There is no evidence of midline displacement. No hemorrhage, signs of acute territorial stroke, mass effect, mass lesions, or edema is evident. The visualized portions of the skull base, midface, and calvarium demonstrate no abnormality. Small amount of fluid in left maxillary sinus. The tympanic and mastoid cavities appear normal. IMPRESSION: No acute intracranial abnormality or hemorrhage. Stable head CT. There is a preliminary report by [facility]. .
[2017-09-25] MEDS: FAMOTIDINE 20 MG TABLET PO SCH ×2 (08:56→21:05)
[2017-09-25] MEDS: NS with KCL 20 mEq 1,000 ML IV SCH (16:48)
[2017-09-25 17:54] VITALS: BMI 20.6
[2017-09-25] MEDS: APIXABAN 2.5 MG TABLET PO SCH (21:04)
[2017-09-26] MEDS: NS with KCL 20 mEq 1,000 ML IV SCH ×3 (03:38→15:35)
[2017-09-26] MEDS: LEVOTHYROXINE 112 MCG TABLET PO SCH (06:30)
--- NOTE | 2017-09-26 08:28 | XRay Report ---
Indication: hypoxia, influenza A PROCEDURE: XR chest 1V: Encounter: Initial Comparison: September 22, 2017 Findings: Scattered calcified granulomas. No focal consolidative pneumonia. No pleural effusion or pneumothorax. Heart size, pulmonary vascularity and mediastinal contours are within normal limits. Impression: Stable chest without acute cardiopulmonary disease. .
--- NOTE | 2017-09-26 08:33 | Ultrasound Report ---
Indication: abnormal liver enzymes, tender RUQ PROCEDURE: US gall bladder: Encounter: Initial Comparison: None Technique: Grayscale and color Doppler sonographic imaging of the right upper quadrant of the abdomen was performed. Findings: Hepatic parenchyma is homogeneous without evidence for focal mass. The gallbladder is normal. There is no wall thickening, pericholecystic fluid, sonographic Villaseñor's sign or cholelithiasis. Both the intra and extrahepatic biliary system are of normal caliber with the common duct measuring 8 mm in dimension. Visualized portions of the head and body of the pancreas are unremarkable. The right kidney is present without collecting system dilatation. The right kidney measures 11.9 cm in length. Multiple simple appearing right renal cysts. Impression: Negative right upper quadrant sonogram. .
[2017-09-26] MEDS: APIXABAN 2.5 MG TABLET PO SCH ×2 (09:12→20:03)
[2017-09-26] MEDS: FAMOTIDINE 20 MG TABLET PO SCH ×2 (09:12→20:03)
[2017-09-26] MEDS: CITALOPRAM 20 MG TABLET PO SCH (09:12)
--- NOTE | 2017-09-26 12:14 | Progress Note ---
- Date 09/26/17 Subjective: Madelyn is feeling better compared to yesterday, but is still weak overall. She states that SOA and cough are improving; she's still on oxygen (does not wear oxygen at home). She denies any abdominal pain or nausea and her appetite seems better. She has walked a little in her room. Objective Vital signs: Temperature 97.2 F 09/26/17 07:00 Pulse Rate 62 09/26/17 07:53 Respiratory Rate 16 09/26/17 07:00 Blood Pressure 162/77 H 09/26/17 07:53 Pulse Oximetry 94 09/26/17 07:00 Height/Weight/BMI: Height 1.55 m Weight 50.3 kg Body Mass Index 20.6 - Constitutional Present: well nourished, well developed, thin - Routine HEENT Exam Head: Present: normocephalic Eye: Present: PERRL. Absent: conjunctival icterus, scleral injection ENT: Present: mucous membranes moist Comments: laryngitis - Routine Respiratory Exam Present: decreased breath sounds (slightly coarse throughout) - Routine Cardiovascular Exam Present: RRR, S1, S2, murmur (?) - Routine Abdominal Exam Present: soft, normoactive bowel sounds, non distended, non tender. Absent: organomegaly - Routine Extremities Exam Present: no edema, normal capillary refill - Routine Skin Exam Present: intact, dry, warm - Routine Neurological Exam Present: alert, oriented X3, moving all extremities - Routine Psychiatric Exam Present: normal affect, normal thought process, cooperative Results - Labs CBC & Chem 7: 09/26/17 04:36 09/26/17 04:36 Assessment and Plan (1) Hyponatremia Current visit: Yes Status: Acute (2) Transaminitis Current visit: Yes Status: Acute (3) Influenza A Current visit: Yes Status: Acute Assessment and Plan: ASSESSMENT Hyponatremia, symptomatic Transaminitis Influenza A Dehydration Generalized weakness Recent syncope Fatigue/somnolence Dysphasia Hypokalemia, 09/25/17 Paroxysmal atrial fibrillation Dyslipidemia Hypothyroidism-TSH 4.94, f-T4 1.91, 08/20/17 hx CVA GERD Hypoxia PLAN Na improved to 135. Encephalopathy much improved. Hypokalemia - resolved with K of 3.7. Oral intake improving; dc rate of IVF. RUQ u/s obtained: no abnormalities to liver/GB. LFTs trending down; cont to hold statin, PPI, and amiodarone. Hepatitis panel negative. Check CMV, EBV. Work on weaning off oxygen; down to 1L this afternoon. Continue Tamiflu for influenza A. PT recommends home with home health. OT eval: OT services not recommended at this time. DVT Prophylaxis: Eliquis GI Prophylaxis: Pepcid Resuscitation Status: Full Code - Physician Narrative Physician: Shwetha Barillas MD Narrative: Date: 09/26/17 Time: 1740 I have independently evaluated and examined this patient. I reviewed the chart, the patient's history, and the SUPERVISOR FINE GRADING/PA's documented findings as above. We discussed and formulated the assessment and plan as above with additions as below: Mrs. Garvey reports persistent easy fatigability but minimal dyspnea and decreased cough. She continues to feel weak reports she's not sleeping all the time today. The patient is much more alert and able to maintain a more coherent conversation today Respirations are nonlabored with clear breath sounds; minor conjunctival injection Minimal tenderness along the right costal margin-improved from yesterday Hepatitis studies negative as well as gallbladder sonogram; transaminases improving fairly quickly. EBV/CMV serologies to be obtained. Cannot exclude transient hypotension as cause of transaminitis. Urine osmolality low at 214. Chest x-ray today unremarkable. Gallbladder sonogram reviewed by myself-no irregularities present in cuffs of liver, gallbladder and normal, no stones or gallbladder wall thickening. No ductal abnormalities/dilatation. Hospital Course Summary Disclaimer: The visit summary below is not to be considered part of the above Progress Note. Hospital Course: 09/25/17 1. Acute transaminitis--full admission and hold all nephrotoxic drugs ( amiodarone et al). Check synthetic function of liver now and after hydration overnight. May need transfer if does not improve. Check viral hepatitis panel. Not cholestatic and no h/o liver disease. Clear liquids only. Famotidine with understandable dyspepsia. 2. Acute hyponatremia with recent water intake. NS and recheck. 3. Acute metabolic encephalopathy due to the above. Monitor for infection. 4. h/o afib--hold DOAC and amiodarone. 5. Dyslipidemia with h/o CVA--hold statin. 6. Hypothyroidism--continue levothyroxine. 7. 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 FeNa 0.5 consistent with dehydration. Urine sodium is low also suggesting dehydration is contributing to hyponatremia although review of prior labs suggests sodium has typically run in the low 130s for the past 3 years or longer. Influenza may account for patient's feelings of weakness and fatigue but is typically not associated with significant abnormalities in liver enzymes. For respiratory panel will be obtained to exclude other viral infections; may require testing for CMV/EBV. Hypotension has not been documented but given poor oral intake and recent syncope and hypotension cannot fully be excluded either with poor perfusion and shock liver as potential causes for abnormal liver enzymes. Gallstones unlikely given pattern of enzyme abnormality seen but the patient is tender in the right upper quadrant and guards when Villaseñor's testing performed so we'll proceed with gallbladder sonogram. Multiple medications on hold due to abnormal liver enzymes including statin, PPI, and amiodarone. Acute hepatitis serologies pending. Symptoms could certainly be explained by an acute infectious hepatitis. Cardiac rhythm is stable and recent thyroid testing was unremarkable. Pepcid for reflux, resume Eliquis. PT/OT/speech therapy consults. Mild hypoxia, RT evaluation, check chest x-ray to exclude infiltrate or atelectasis requiring interventions. 09/26/17 Na improved to 135. Encephalopathy much improved. Hypokalemia - resolved with K of 3.7. Oral intake improving; dc rate of IVF. RUQ u/s obtained: no abnormalities to liver/GB. LFTs trending down; cont to hold statin, PPI, and amiodarone. Hepatitis panel negative. Check CMV, EBV. Work on weaning off oxygen; down to 1L this afternoon. Continue Tamiflu for influenza A. PT recommends home with home health. OT eval: OT services not recommended at this time.
[2017-09-27] MEDS: NS with KCL 20 mEq 1,000 ML IV SCH ×2 (02:04→16:39)
[2017-09-27] MEDS: LEVOTHYROXINE 112 MCG TABLET PO SCH (06:14)
[2017-09-27] MEDS: APIXABAN 2.5 MG TABLET PO SCH ×2 (11:15→21:54)
[2017-09-27] MEDS: CITALOPRAM 20 MG TABLET PO SCH (11:15)
[2017-09-27] MEDS: SALINE FLUSH 10ml SYRINGE IVF PRN (13:47)
--- NOTE | 2017-09-27 16:36 | Progress Note ---
- Date 09/27/17 Subjective: I stopped by earlier this afternoon to check on Madelyn but she was sleeping comfortably. When I returned, she was still resting but easily awakened. She complains of feeling very tired and very weak. She feels worse today compared to yesterday. She has nausea and does not have any appetite today. She denies constipation or diarrhea. She denies feeling dizzy, just incredibly weak. She hasn't really been out of bed today because she hasn't felt like she's had the energy. She states her breathing feels better and she is off of oxygen today. She coughs occasionally. Objective Vital signs: Temperature 99.8 F 09/27/17 16:12 Pulse Rate 54 L 09/27/17 16:12 Respiratory Rate 13 09/27/17 16:12 Blood Pressure 132/69 09/27/17 16:12 Pulse Oximetry 93 09/27/17 16:12 Height/Weight/BMI: Height 1.55 m Weight 49.7 kg Body Mass Index 20.6 - Constitutional Present: mild distress, well nourished, well developed, thin - Routine HEENT Exam Head: Present: normocephalic Eye: Absent: conjunctival icterus, scleral injection - Routine Respiratory Exam Present: crackles (left lower lobe) Comments: Coarse breath sounds - Routine Cardiovascular Exam Present: RRR, S1, S2 - Routine Abdominal Exam Present: soft, normoactive bowel sounds, non distended, non tender - Routine Extremities Exam Present: no edema, pulses intact - Routine Skin Exam Present: intact, dry, pallor, warm - Routine Neurological Exam Present: alert, oriented X3, normal speech - Routine Psychiatric Exam Present: normal affect, normal thought process, cooperative Results - Labs CBC & Chem 7: 09/27/17 04:29 09/27/17 04:29 Assessment and Plan (1) Influenza A Current visit: Yes Status: Acute (2) Hyponatremia Current visit: Yes Status: Acute (3) Transaminitis Current visit: Yes Status: Acute Assessment and Plan: ASSESSMENT Hyponatremia, symptomatic Transaminitis Influenza A Dehydration Generalized weakness Recent syncope Fatigue/somnolence Dysphasia Hypokalemia, 09/25/17 Paroxysmal atrial fibrillation Dyslipidemia Hypothyroidism-TSH 4.94, f-T4 1.91, 08/20/17 hx CVA GERD Hypoxia Hypokalemia PLAN Potassium is slightly low at 3.4, sodium is 137. LFTs continue to improve, AST down to 687 ALT 1300. EBV and CMV studies are pending. Continue to hold statin, PPI and amiodarone. However, clinically she is feeling worse today with nausea, poor appetite and ongoing severe weakness. Continue IVF, Zofran, Reglan PRN. Crackles heard to left base today with increased coarseness. Will repeat chest x -ray. She has been weaned off oxygen and has been maintaining saturations on room air. Continue Tamiflu for influenza a. DVT Prophylaxis: Eliquis GI Prophylaxis: Pepcid Resuscitation Status: Full Code - Physician Narrative Physician: Shwetha Barillas MD Narrative: Date: 09/27/17 Time: 1700 I have independently evaluated and examined this patient. I reviewed the chart, the patient's history, and the DRIVER UTILITY WORKER/PA's documented findings as above. We discussed and formulated the assessment and plan as above with additions as below: Mrs. Garvey reports increased nausea today and poor appetite. She denied dyspnea. Fatigue is ongoing. Drowsy female but responds to questions appropriately Respirations nonlabored, abdomen soft, nontender, bowel sounds present Transaminases continue to improve, EBV/CMV pending Tamiflu may be contributing to current GI symptoms-if ongoing would discontinue. Hospital Course Summary Disclaimer: The visit summary below is not to be considered part of the above Progress Note. Hospital Course: 09/25/17 1. Acute transaminitis--full admission and hold all nephrotoxic drugs ( amiodarone et al). Check synthetic function of liver now and after hydration overnight. May need transfer if does not improve. Check viral hepatitis panel. Not cholestatic and no h/o liver disease. Clear liquids only. Famotidine with understandable dyspepsia. 2. Acute hyponatremia with recent water intake. NS and recheck. 3. Acute metabolic encephalopathy due to the above. Monitor for infection. 4. h/o afib--hold DOAC and amiodarone. 5. Dyslipidemia with h/o CVA--hold statin. 6. Hypothyroidism--continue levothyroxine. 7. 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 FeNa 0.5 consistent with dehydration. Urine sodium is low also suggesting dehydration is contributing to hyponatremia although review of prior labs suggests sodium has typically run in the low 130s for the past 3 years or longer. Influenza may account for patient's feelings of weakness and fatigue but is typically not associated with significant abnormalities in liver enzymes. For respiratory panel will be obtained to exclude other viral infections; may require testing for CMV/EBV. Hypotension has not been documented but given poor oral intake and recent syncope and hypotension cannot fully be excluded either with poor perfusion and shock liver as potential causes for abnormal liver enzymes. Gallstones unlikely given pattern of enzyme abnormality seen but the patient is tender in the right upper quadrant and guards when Villaseñor's testing performed so we'll proceed with gallbladder sonogram. Multiple medications on hold due to abnormal liver enzymes including statin, PPI, and amiodarone. Acute hepatitis serologies pending. Symptoms could certainly be explained by an acute infectious hepatitis. Cardiac rhythm is stable and recent thyroid testing was unremarkable. Pepcid for reflux, resume Eliquis. PT/OT/speech therapy consults. Mild hypoxia, RT evaluation, check chest x-ray to exclude infiltrate or atelectasis requiring interventions. 09/26/17 Na improved to 135. Encephalopathy much improved. Hypokalemia - resolved with K of 3.7. Oral intake improving; dc rate of IVF. RUQ u/s obtained: no abnormalities to liver/GB. LFTs trending down; cont to hold statin, PPI, and amiodarone. Hepatitis panel negative. Check CMV, EBV. Work on weaning off oxygen; down to 1L this afternoon. Continue Tamiflu for influenza A. PT recommends home with home health. OT eval: OT services not recommended at this time. 09/27/17 Potassium is slightly low at 3.4, sodium is 137. LFTs continue to improve, AST down to 687 ALT 1300. EBV and CMV studies are pending. Continue to hold statin, PPI and amiodarone. However, clinically she is feeling worse today with nausea, poor appetite and ongoing severe weakness. Continue IVF, Zofran, Reglan PRN. Crackles heard to left base today with increased coarseness. Will repeat chest x -ray. She has been weaned off oxygen and has been maintaining saturations on room air. Continue Tamiflu for influenza a.
[2017-09-27] MEDS: FAMOTIDINE 20 MG TABLET PO SCH (21:54)
[2017-09-28] MEDS: LEVOTHYROXINE 112 MCG TABLET PO SCH (06:03)
[2017-09-28] MEDS: NS with KCL 20 mEq 1,000 ML IV SCH (06:03)
[2017-09-28] MEDS: APIXABAN 2.5 MG TABLET PO SCH ×2 (08:53→20:37)
[2017-09-28] MEDS: CITALOPRAM 20 MG TABLET PO SCH (08:53)
--- NOTE | 2017-09-28 09:27 | XRay Report ---
Indication: crackles PROCEDURE: XR chest 1V: Encounter: Initial Comparison: September 26, 2017 Findings: Increasing airspace opacity in the right lower lobe with senescent changes and emphysema. No definite effusion. No pneumothorax. Heart size and mediastinal contours are stable. Pulmonary vascularity is unchanged. Impression: Developing right lower lobe atelectasis or pneumonia. .
--- NOTE | 2017-09-28 09:42 | Progress Note ---
- Date 09/28/17 Subjective: Madelyn is seen today in follow up. She is eating breakfast- is noted to have a coarse, productive cough during my visit. She endorses a persistent cough. Denies pain or edema. Denies any other concerns. Chart is reviewed for collateral information. Objective Vital signs: Temperature 95.6 F L 09/28/17 08:00 Pulse Rate 59 L 09/28/17 08:00 Respiratory Rate 16 09/28/17 08:00 Blood Pressure 173/85 H 09/28/17 08:00 Pulse Oximetry 93 09/28/17 08:00 Rhythm: Normal Sinus Rhythm Height/Weight/BMI: Height 1.55 m Weight 47.8 kg Body Mass Index 20.6 - Constitutional Present: mild distress, thin, cooperative, other (Frail, elderly, appears ill. ) - Routine HEENT Exam Head: Present: normocephalic, atraumatic Eye: Present: EOMI, PERRL - Routine Respiratory Exam Present: dyspnea (Mildly dyspneic due to persistent coarse cough.), rhonchi ( Scattered intermittent Rhonchi. ), diminished air movement (Bases) - Routine Cardiovascular Exam Present: RRR, S1, S2, no murmur - Routine Abdominal Exam Present: soft, normoactive bowel sounds, non distended, non tender - Routine Extremities Exam Present: no edema, non tender - Routine Musculoskeletal Exam Musculoskeletal: Present: no clubbing or cyanosis - Routine Skin Exam Present: intact, dry, warm - Routine Neurological Exam Present: alert, oriented X3, moving all extremities - Routine Psychiatric Exam Present: normal affect, cooperative Results - Labs CBC & Chem 7: 09/28/17 04:12 09/28/17 04:12 - Imaging and Cardiology Chest x-ray Status: image reviewed by me Additional comments: CXR Impression: Developing right lower lobe atelectasis or pneumonia. . Assessment and Plan (1) Influenza A Current visit: Yes Status: Acute (2) Hyponatremia Current visit: Yes Status: Acute (3) Transaminitis Current visit: Yes Status: Acute Assessment and Plan: ASSESSMENT RLL CAP, 09/28/17 Acute HTN Transaminitis Influenza A Generalized weakness Recent syncope Fatigue/somnolence Dysphasia Paroxysmal atrial fibrillation Dyslipidemia Hypothyroidism-TSH 4.94, f-T4 1.91, 08/20/17 GERD Hypoxia Resolved: Hypokalemia Hyponatremia, symptomatic Dehydration hx CVA PLAN 09/28/17- Madelyn remains ill- she appears weak and fatigued. *CXR reveals developing PNA- will start Ceftriaxone and Doxycyline. (avoid azithro due to hx of Atrial fib, need to hold amiodarone). Schedule nebs. She is demonstrating low normal sats on RA. Continue Tamiflu. Repeat CXR in AM *Dehydration as resolved- serum osmo trending down again. DC IVF. *BP has been elevated- start low dose Amlodipine. She does not appear to be on antihypertensives at home. *HR controlled, mildly bradycardic. Hold Amiodarone. Monitor HR. Continue low dose Eliquis. *Transaminitis is improving. Holding Amiodarone, Statins. Assess CPK. GB sono was negative. Repeat CMP in AM. Continue monitoring, strengthening. May need SNU or rehab post acute stay due to her frail status. 09/28/2017-6:20 PM-I reviewed this chart, the patient history, and the VIDEOTAPE OPERATOR's/PA 's documented findings as above. We discussed and formulated the assessment and plan as above with the additions below.-Dr. Cruz The patient was seen this evening in her room. She denies any pain. She denies shortness of breath. She has not had any recent fever. She states she is eating and drinking okay. She states she still feels as weak and fatigued as she did when she came in. She denies any abdominal pain. She denies any nausea or vomiting. On exam she appears frail. She is alert and oriented. HEENT reveals oropharynx to be mildly dry. Neck is supple. Chest is clear to auscultation. Abdomen is soft with some mild epigastric to left upper quadrant tenderness. No rebound or guarding. Bowel sounds are normoactive. Extremities are free of edema. SCDs are on. Chest x-ray reveals questionable right lower lobe infiltrate versus atelectasis. White count is normal. EKG reveals intermittent atrial fibrillation. Rate is controlled. Impression and plan Influenza A-no Tamiflu and supportive care Possible early right lower lobe pneumonia versus atelectasis-Rocephin and doxycycline initiated. We'll add incentive spirometer as well. Transaminitis-continues to improve daily. CMV and EBV are pending. She remains off of amiodarone and statins. Continue eliquis for atrial fibrillation. DVT Prophylaxis: Katiequradha - Physician Narrative Narrative: Date: 09/28/17 Time: 0939 Hospital Course Summary Disclaimer: The visit summary below is not to be considered part of the above Progress Note. Hospital Course: 09/25/17 1. Acute transaminitis--full admission and hold all nephrotoxic drugs ( amiodarone et al). Check synthetic function of liver now and after hydration overnight. May need transfer if does not improve. Check viral hepatitis panel. Not cholestatic and no h/o liver disease. Clear liquids only. Famotidine with understandable dyspepsia. 2. Acute hyponatremia with recent water intake. NS and recheck. 3. Acute metabolic encephalopathy due to the above. Monitor for infection. 4. h/o afib--hold DOAC and amiodarone. 5. Dyslipidemia with h/o CVA--hold statin. 6. Hypothyroidism--continue levothyroxine. 7. 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 FeNa 0.5 consistent with dehydration. Urine sodium is low also suggesting dehydration is contributing to hyponatremia although review of prior labs suggests sodium has typically run in the low 130s for the past 3 years or longer. Influenza may account for patient's feelings of weakness and fatigue but is typically not associated with significant abnormalities in liver enzymes. For respiratory panel will be obtained to exclude other viral infections; may require testing for CMV/EBV. Hypotension has not been documented but given poor oral intake and recent syncope and hypotension cannot fully be excluded either with poor perfusion and shock liver as potential causes for abnormal liver enzymes. Gallstones unlikely given pattern of enzyme abnormality seen but the patient is tender in the right upper quadrant and guards when Villaseñor's testing performed so we'll proceed with gallbladder sonogram. Multiple medications on hold due to abnormal liver enzymes including statin, PPI, and amiodarone. Acute hepatitis serologies pending. Symptoms could certainly be explained by an acute infectious hepatitis. Cardiac rhythm is stable and recent thyroid testing was unremarkable. Pepcid for reflux, resume Eliquis. PT/OT/speech therapy consults. Mild hypoxia, RT evaluation, check chest x-ray to exclude infiltrate or atelectasis requiring interventions. 09/26/17 Na improved to 135. Encephalopathy much improved. Hypokalemia - resolved with K of 3.7. Oral intake improving; dc rate of IVF. RUQ u/s obtained: no abnormalities to liver/GB. LFTs trending down; cont to hold statin, PPI, and amiodarone. Hepatitis panel negative. Check CMV, EBV. Work on weaning off oxygen; down to 1L this afternoon. Continue Tamiflu for influenza A. PT recommends home with home health. OT eval: OT services not recommended at this time. 09/27/17 Potassium is slightly low at 3.4, sodium is 137. LFTs continue to improve, AST down to 687 ALT 1300. EBV and CMV studies are pending. Continue to hold statin, PPI and amiodarone. However, clinically she is feeling worse today with nausea, poor appetite and ongoing severe weakness. Continue IVF, Zofran, Reglan PRN. Crackles heard to left base today with increased coarseness. Will repeat chest x -ray. She has been weaned off oxygen and has been maintaining saturations on room air. Continue Tamiflu for influenza a. PLAN 09/28/17- Madleyn remains ill- she appears weak and fatigued. *CXR reveals developing PNA- will start Ceftriaxone and Doxycyline. (avoid azithro due to hx of Atrial fib, need to hold amiodarone). Schedule nebs. She is demonstrating low normal sats on RA. Continue Tamiflu. Repeat CXR in AM *Dehydration as resolved- serum osmo trending down again. DC IVF. *BP has been elevated- start low dose Amlodipine. She does not appear to be on antihypertensives at home. *HR controlled, mildly bradycardic. Hold Amiodarone. Monitor HR. Continue low dose Eliquis. *Transaminitis is improving. Holding Amiodarone, Statins. Assess CPK. GB sono was negative. Repeat CMP in AM. Continue monitoring, strengthening. May need SNU or rehab post acute stay due to her frail status.
[2017-09-28] MEDS: ALBUTEROL/IPRATROPIUM 2.5mg-0.5mg/3ml NEB AEROSOL SCH ×3 (11:08→19:43)
[2017-09-28] MEDS: DOXYCYCLINE 100 MG in NS 250ml 250 ML IV SCH ×2 (12:45→20:36)
[2017-09-28] MEDS: AMLODIPINE 2.5 MG TABLET PO SCH (13:56)
[2017-09-28] MEDS: CEFTRIAXONE 1 G in NS 100 ML IV SCH (14:03)
[2017-09-28] MEDS: FAMOTIDINE 20 MG TABLET PO SCH (20:36)
[2017-09-29] MEDS: LEVOTHYROXINE 112 MCG TABLET PO SCH (05:58)
[2017-09-29] MEDS: ALBUTEROL/IPRATROPIUM 2.5mg-0.5mg/3ml NEB AEROSOL SCH ×4 (07:05→20:24)
[2017-09-29] MEDS: DOXYCYCLINE 100 MG in NS 250ml 250 ML IV SCH ×2 (08:46→20:47)
[2017-09-29] MEDS: AMLODIPINE 2.5 MG TABLET PO SCH (08:46)
[2017-09-29] MEDS: APIXABAN 2.5 MG TABLET PO SCH ×2 (08:46→20:40)
[2017-09-29] MEDS: CITALOPRAM 20 MG TABLET PO SCH (08:46)
--- NOTE | 2017-09-29 08:54 | XRay Report ---
EXAM: XR chest 2V COMPARISON: Chest x-ray dated 09/27/2017. HISTORY: Pneumonia . FINDINGS: Improving right lower lobe airspace with developing left lower lobe airspace disease is evident. Small bilateral pleural effusions are present. There is no pneumothorax. The cardiac silhouette is stable and the pulmonary vasculature is within normal limits. No mediastinal abnormality is present. IMPRESSION: 1. Improving right lower lobe with developing left lower lobe subsegmental atelectasis versus pneumonia. 2. Small bilateral pleural effusions. .
[2017-09-29] MEDS ORDERED: NS 1,000 ML IV ONE (10:00)
[2017-09-29] MEDS: CEFTRIAXONE 1 G in NS 100 ML IV SCH (10:27)
--- NOTE | 2017-09-29 11:18 | Progress Note ---
- Date 09/29/17 Subjective: Madelyn states that she is "tired of lying around". She is weak overall, but is feeling better. She isn't as tired as she has been. She denies feeling short of breath or having any chest pain. She isn't coughing very much. She denies feeling dizzy. She has not had any nausea or vomiting. She states that she feels ready to go home. She lives at home, but has a neighbor close by. Objective Vital signs: Temperature 97.6 F 09/29/17 08:26 Pulse Rate 114 H 09/29/17 08:31 Respiratory Rate 16 09/29/17 10:20 Blood Pressure 90/64 09/29/17 08:31 Pulse Oximetry 95 09/29/17 10:20 Height/Weight/BMI: Height 1.55 m Weight 48.8 kg Body Mass Index 20.6 - Constitutional Present: no acute distress, well nourished, well developed, thin - Routine HEENT Exam Head: Present: normocephalic Eye: Present: PERRL. Absent: conjunctival icterus, scleral injection ENT: Present: oropharynx clear - Routine Respiratory Exam Present: decreased breath sounds - Routine Cardiovascular Exam Present: irregularly irregular - Routine Abdominal Exam Present: soft, normoactive bowel sounds, non distended, non tender - Routine Extremities Exam Present: no edema, pulses intact - Routine Skin Exam Present: intact, dry, warm - Routine Neurological Exam Present: alert, oriented X3, normal speech - Routine Psychiatric Exam Present: normal affect, normal thought process, cooperative Results - Labs CBC & Chem 7: 09/29/17 04:10 09/29/17 04:10 Assessment and Plan (1) Influenza A Current visit: Yes Status: Acute (2) Hyponatremia Current visit: Yes Status: Acute (3) Transaminitis Current visit: Yes Status: Acute Assessment and Plan: ASSESSMENT RLL CAP, 09/28/17 Acute HTN Transaminitis Influenza A Generalized weakness Recent syncope Fatigue/somnolence Dysphasia Paroxysmal atrial fibrillation Dyslipidemia Hypothyroidism-TSH 4.94, f-T4 1.91, 08/20/17 GERD Hypoxia - resolved Hypokalemia Hyponatremia, symptomatic - resolved Dehydration hx CVA PLAN Rhythm changed to A. fib last night, rate has been slightly tachycardic. Amiodarone has been on hold because of elevated liver enzymes. Continue Eliquis. Madelyn is orthostatic with her supine blood pressure at 116/66 and standing 90/ 64. In addition, heart rate increased from 101-114 with change in position. Dr. Cruz has ordered a 1 L fluid bolus. Amlodipine (started yesterday) has been discontinued. LFTs continue to trend down. AST is 136, ALT 642. CMV and EBV serologies are pending. Potassium is slightly low at 3.5 and K-Dur has been ordered. Repeat chest x-ray this morning shows an improving right lower lobe pneumonia. However, there is a developing left lower lobe atelectasis versus pneumonia. Continue Rocephin and doxycycline, day #2. Tamiflu course has been completed. Continue with inpatient therapy. Suspect she may need half-way at time of discharge. 09/29/2017-2:40 PM-I reviewed this chart, the patient history, and the PROMOTION OFFICER's/PA 's documented findings as above. We discussed and formulated the assessment and plan as above with the additions below.-Dr. Cruz Patient was seen this afternoon in her room. She was taken now but awakened easily. She states she's feeling better. She states she was able to walk and " it felt good". She was given IV fluids today for orthostatic hypotension. She states her breathing is doing better but she continues to have some occasional cough. She denies any pain. She states her appetite is not as good as usual but she is able to eat. No nausea or vomiting. She denies any pain. She has had some intermittent atrial fibrillation, occasionally with mild rapid ventricular response. Currently on telemetry she is in sinus rhythm with heart rate in the 60s to 70s. On exam she is alert and in no acute distress. Chest reveals some mild coarse breath sounds in the right base anteriorly. Cardiovascular reveals a regular rate and rhythm. Abdomen is soft and nontender. Extremities are free of edema. Impression and plan Influenza A-she is finished Tamiflu Infiltrate versus atelectasis in the right base-currently on day 2 of antibiotics. Repeat chest x-ray tomorrow. Orthostatic hypotension-the patient was given a 1 L fluid bolus. We'll continue to monitor orthostatic vitals. Intermittent atrial fibrillation-she is anticoagulated. Amiodarone on hold due to elevated transaminases Transaminitis-improving daily. Etiology uncertain. EBV and CMV testing are pending. DVT Prophylaxis: Eliquis Resuscitation Status: Full Code - Physician Narrative Narrative: Date: 09/29/17 Time: 1109 Hospital Course Summary Disclaimer: The visit summary below is not to be considered part of the above Progress Note. Hospital Course: 09/25/17 1. Acute transaminitis--full admission and hold all nephrotoxic drugs ( amiodarone et al). Check synthetic function of liver now and after hydration overnight. May need transfer if does not improve. Check viral hepatitis panel. Not cholestatic and no h/o liver disease. Clear liquids only. Famotidine with understandable dyspepsia. 2. Acute hyponatremia with recent water intake. NS and recheck. 3. Acute metabolic encephalopathy due to the above. Monitor for infection. 4. h/o afib--hold DOAC and amiodarone. 5. Dyslipidemia with h/o CVA--hold statin. 6. Hypothyroidism--continue levothyroxine. 7. 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 FeNa 0.5 consistent with dehydration. Urine sodium is low also suggesting dehydration is contributing to hyponatremia although review of prior labs suggests sodium has typically run in the low 130s for the past 3 years or longer. Influenza may account for patient's feelings of weakness and fatigue but is typically not associated with significant abnormalities in liver enzymes. For respiratory panel will be obtained to exclude other viral infections; may require testing for CMV/EBV. Hypotension has not been documented but given poor oral intake and recent syncope and hypotension cannot fully be excluded either with poor perfusion and shock liver as potential causes for abnormal liver enzymes. Gallstones unlikely given pattern of enzyme abnormality seen but the patient is tender in the right upper quadrant and guards when Villaseñor's testing performed so we'll proceed with gallbladder sonogram. Multiple medications on hold due to abnormal liver enzymes including statin, PPI, and amiodarone. Acute hepatitis serologies pending. Symptoms could certainly be explained by an acute infectious hepatitis. Cardiac rhythm is stable and recent thyroid testing was unremarkable. Pepcid for reflux, resume Eliquis. PT/OT/speech therapy consults. Mild hypoxia, RT evaluation, check chest x-ray to exclude infiltrate or atelectasis requiring interventions. 09/26/17 Na improved to 135. Encephalopathy much improved. Hypokalemia - resolved with K of 3.7. Oral intake improving; dc rate of IVF. RUQ u/s obtained: no abnormalities to liver/GB. LFTs trending down; cont to hold statin, PPI, and amiodarone. Hepatitis panel negative. Check CMV, EBV. Work on weaning off oxygen; down to 1L this afternoon. Continue Tamiflu for influenza A. PT recommends home with home health. OT eval: OT services not recommended at this time. 09/27/17 Potassium is slightly low at 3.4, sodium is 137. LFTs continue to improve, AST down to 687 ALT 1300. EBV and CMV studies are pending. Continue to hold statin, PPI and amiodarone. However, clinically she is feeling worse today with nausea, poor appetite and ongoing severe weakness. Continue IVF, Zofran, Reglan PRN. Crackles heard to left base today with increased coarseness. Will repeat chest x -ray. She has been weaned off oxygen and has been maintaining saturations on room air. Continue Tamiflu for influenza a. PLAN 09/28/17- Madelyn remains ill- she appears weak and fatigued. *CXR reveals developing PNA- will start Ceftriaxone and Doxycyline. (avoid azithro due to hx of Atrial fib, need to hold amiodarone). Schedule nebs. She is demonstrating low normal sats on RA. Continue Tamiflu. Repeat CXR in AM *Dehydration as resolved- serum osmo trending down again. DC IVF. *BP has been elevated- start low dose Amlodipine. She does not appear to be on antihypertensives at home. *HR controlled, mildly bradycardic. Hold Amiodarone. Monitor HR. Continue low dose Eliquis. *Transaminitis is improving. Holding Amiodarone, Statins. Assess CPK. GB sono was negative. Repeat CMP in AM. Continue monitoring, strengthening. May need SNU or rehab post acute stay due to her frail status. 09/29/17 Rhythm changed to A. fib last night, rate has been slightly tachycardic. Amiodarone has been on hold because of elevated liver enzymes. Continue Eliquis. Madelyn is orthostatic with her supine blood pressure at 116/66 and standing 90/ 64. In addition, heart rate increased from 101-114 with change in position. Dr. Cruz has ordered a 1 L fluid bolus. Amlodipine (started yesterday) has been discontinued. LFTs continue to trend down. AST is 136, ALT 642. CMV and EBV serologies are pending. Potassium is slightly low at 3.5 and K-Dur has been ordered. Repeat chest x-ray this morning shows an improving right lower lobe pneumonia. However, there is a developing left lower lobe atelectasis versus pneumonia. Continue Rocephin and doxycycline. Tamiflu course has been completed. Continue with inpatient therapy. Suspect she may need half-way at time of discharge.
[2017-09-29] MEDS: FAMOTIDINE 20 MG TABLET PO SCH (20:40)
[2017-09-30] MEDS: LEVOTHYROXINE 112 MCG TABLET PO SCH (06:06)
[2017-09-30] MEDS: ALBUTEROL/IPRATROPIUM 2.5mg-0.5mg/3ml NEB AEROSOL SCH ×4 (07:14→21:15)
[2017-09-30] MEDS: CITALOPRAM 20 MG TABLET PO SCH (08:46)
[2017-09-30] MEDS: APIXABAN 2.5 MG TABLET PO SCH ×2 (08:46→21:58)
[2017-09-30] MEDS: DOXYCYCLINE 100 MG in NS 250ml 250 ML IV SCH (08:46)
--- NOTE | 2017-09-30 09:58 | XRay Report ---
Indication: pneumonia vs atelectasis with cough PROCEDURE: XR chest 2V: Encounter: Initial Comparison: 09/29/2017 Findings: There are trace bilateral pleural effusions. Heart size is normal. There is improvement in the bibasilar subsegmental atelectasis without lobar consolidation. No definite mediastinal or hilar adenopathy. Trachea is midline. No subdiaphragmatic free air. There is mild tortuosity of the descending thoracic aorta. Impression: Persistent trace bilateral pleural effusions with improvement in the bibasilar subsegmental atelectasis. No definite lobar consolidation to suggest pneumonia. .
[2017-09-30] MEDS ORDERED: MENTHOL COUGH DROPS (RICOLA) MM PRN (10:13)
--- NOTE | 2017-09-30 10:17 | Progress Note ---
- Date 09/30/17 Subjective: F/U: influenza A, hypokalemia, transaminitis, anemia. Madelyn is seen while resting in bed, having just finished her breakfast. Her voice is noted to be horse which she reports seems worse today. She states that she feels like her cough is improving but still feels short of breath with exertion. Her appetite is fair but no bowel movement in 3 days. Labs revealed hypokalemia (K 3.3) and slowly improving transaminitis. Anemia stable. Objective Vital signs: Temperature 97.3 F 09/30/17 04:00 Pulse Rate 68 09/30/17 04:00 Respiratory Rate 16 09/30/17 07:14 Blood Pressure 162/81 H 09/30/17 04:00 Pulse Oximetry 95 09/30/17 07:14 Rhythm: Normal Sinus Rhythm Height/Weight/BMI: Height 5 ft 1 in Weight 109 lb 2.061 oz Body Mass Index 20.6 Comments: Resting in bed, breathing easily on room air. - Constitutional Present: no acute distress, well nourished, well developed, thin, cooperative - Routine HEENT Exam Head: Present: normocephalic, atraumatic Eye: Present: PERRL. Absent: conjunctival icterus ENT: Present: mucous membranes moist, oropharynx clear Comments: Horse voice. - Routine Respiratory Exam Present: decreased breath sounds. Absent: accessory muscle use, dyspnea, respiratory distress, wheezes Comments: Decreased breath sounds in bilateral bases with course breath sounds noted in upper lobes which improve with cough; no conversational dyspnea. - Routine Cardiovascular Exam Present: RRR, S1, S2 - Routine Abdominal Exam Present: soft, normoactive bowel sounds, non tender - Routine Extremities Exam Present: no edema, pulses intact - Routine Back/Spine/Pelvis Exam Back/Spine: Present: full ROM. Absent: vertebral tenderness - Routine Musculoskeletal Exam Musculoskeletal: Present: moving extremities well - Routine Skin Exam Present: dry, warm. Absent: jaundice Comments: Afebrile. - Routine Neurological Exam Present: alert, moving all extremities, hearing grossly intact, normal speech generalized weakness. - Routine Lymphatic Exam Lymphatic: Absent: lymphedema - Routine Psychiatric Exam Present: normal affect, cooperative Results - Labs CBC & Chem 7: 09/30/17 08:35 09/30/17 08:35 Microbiology Results: Microbiology 09/29/17 05:50 Urine Streptococcus pneumoniae Antigen (M - Final Assessment and Plan (1) Influenza A Current visit: Yes Status: Acute (2) Hyponatremia Current visit: Yes Status: Resolved (3) Transaminitis Current visit: Yes Status: Acute Assessment and Plan: ASSESSMENT RLL CAP, 09/28/17 Acute HTN Transaminitis Influenza A Generalized weakness Recent syncope Fatigue/somnolence Dysphasia Paroxysmal atrial fibrillation Dyslipidemia Hypothyroidism-TSH 4.94, f-T4 1.91, 08/20/17 GERD Hypoxia - resolved Hypokalemia Hyponatremia, symptomatic - resolved Dehydration hx CVA Hypokalemia - 09/29/17. Anemia, unspecified - 09/26/17. PLAN - 09/30/17: Telemetry reveals sinus rhythm. Amiodarone remains on hold due to transaminitis. Continue to monitor closely. Orthostatic hypotension resolved with 1L NS. Continue to monitor closely due to increased risk of falls. Amlodipine discontinued 09/29/17. LFTs trending down. Continue to monitor. CMV and EBV serologies are pending. Potassium is slightly low at 3.3 - KCl 40 mEq po given now. Recheck in AM. Repeat chest x-ray this morning shows persistent trace bilateral pleural effusions with improvement in bibasilar subsegmental atelectasis with no definite lobar consolidation to suggest pneumonia. Patient remains afebrile with clinical improvement. Will continue Rocephin and doxycycline at this time, day #3 and discuss possible discontinuation with Dr. Barillas. Tamiflu course completed 09/29/17. Continue respiratory cares, nebulizer treatments and mucinex for cough. Continue with inpatient therapy. Suspect she may need prison at time of discharge. Recheck CBC and CMP in AM to monitor blood counts, electrolytes, renal function and LFTs. DVT Prophylaxis: SCD's, Eliquis GI Prophylaxis: Pepcid Resuscitation Status: Full Code - Time spent with patient Time with patient PN: 30 minutes - Physician Narrative Physician: Shwetha Barillas MD Narrative: Date: 09/30/17 Time: 1720 I have independently evaluated and examined this patient. I reviewed the chart, the patient's history, and the SLUBBER TENDER/PA's documented findings as above. We discussed and formulated the assessment and plan as above with additions as below: Mrs. Garvey was seen this morning and reported that she feels much better. She has minimal fatigue or cough and feel she is able to go home with assistance at this time. Subsequently multiple conversations were held with case management in determining the patient needs at discharge as the patient's neighbor will be unable to assist her as she did in the past. The patient's son indicated preference for prison that patient is not interested in discharge to a facility. Patient is alert and in no distress; respirations are nonlabored with good airflow, breath sounds are clear other than faint inspiratory/expiratory crackles in the right posterior mid lung. Chest x-ray reviewed by myself-trace bilateral pleural effusions and minimal atelectasis. CMV IgG positive, IgM negative; EBV capsid Ag IgG positive, remainder of panel negative Antibiotics can be discontinued; strep pneumo antigen negative. Anticipate discharge tomorrow after home health and additional support services family has requested can be coordinated. All serologies regarding cause of transaminitis have been negative. Hospital Course Summary Disclaimer: The visit summary below is not to be considered part of the above Progress Note. Hospital Course: 09/25/17 1. Acute transaminitis--full admission and hold all nephrotoxic drugs ( amiodarone et al). Check synthetic function of liver now and after hydration overnight. May need transfer if does not improve. Check viral hepatitis panel. Not cholestatic and no h/o liver disease. Clear liquids only. Famotidine with understandable dyspepsia. 2. Acute hyponatremia with recent water intake. NS and recheck. 3. Acute metabolic encephalopathy due to the above. Monitor for infection. 4. h/o afib--hold DOAC and amiodarone. 5. Dyslipidemia with h/o CVA--hold statin. 6. Hypothyroidism--continue levothyroxine. 7. 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 FeNa 0.5 consistent with dehydration. Urine sodium is low also suggesting dehydration is contributing to hyponatremia although review of prior labs suggests sodium has typically run in the low 130s for the past 3 years or longer. Influenza may account for patient's feelings of weakness and fatigue but is typically not associated with significant abnormalities in liver enzymes. For respiratory panel will be obtained to exclude other viral infections; may require testing for CMV/EBV. Hypotension has not been documented but given poor oral intake and recent syncope and hypotension cannot fully be excluded either with poor perfusion and shock liver as potential causes for abnormal liver enzymes. Gallstones unlikely given pattern of enzyme abnormality seen but the patient is tender in the right upper quadrant and guards when Villaseñor's testing performed so we'll proceed with gallbladder sonogram. Multiple medications on hold due to abnormal liver enzymes including statin, PPI, and amiodarone. Acute hepatitis serologies pending. Symptoms could certainly be explained by an acute infectious hepatitis. Cardiac rhythm is stable and recent thyroid testing was unremarkable. Pepcid for reflux, resume Eliquis. PT/OT/speech therapy consults. Mild hypoxia, RT evaluation, check chest x-ray to exclude infiltrate or atelectasis requiring interventions. 09/26/17 Na improved to 135. Encephalopathy much improved. Hypokalemia - resolved with K of 3.7. Oral intake improving; dc rate of IVF. RUQ u/s obtained: no abnormalities to liver/GB. LFTs trending down; cont to hold statin, PPI, and amiodarone. Hepatitis panel negative. Check CMV, EBV. Work on weaning off oxygen; down to 1L this afternoon. Continue Tamiflu for influenza A. PT recommends home with home health. OT eval: OT services not recommended at this time. 09/27/17 Potassium is slightly low at 3.4, sodium is 137. LFTs continue to improve, AST down to 687 ALT 1300. EBV and CMV studies are pending. Continue to hold statin, PPI and amiodarone. However, clinically she is feeling worse today with nausea, poor appetite and ongoing severe weakness. Continue IVF, Zofran, Reglan PRN. Crackles heard to left base today with increased coarseness. Will repeat chest x -ray. She has been weaned off oxygen and has been maintaining saturations on room air. Continue Tamiflu for influenza a. PLAN 09/28/17- Madelyn remains ill- she appears weak and fatigued. *CXR reveals developing PNA- will start Ceftriaxone and Doxycyline. (avoid azithro due to hx of Atrial fib, need to hold amiodarone). Schedule nebs. She is demonstrating low normal sats on RA. Continue Tamiflu. Repeat CXR in AM *Dehydration as resolved- serum osmo trending down again. DC IVF. *BP has been elevated- start low dose Amlodipine. She does not appear to be on antihypertensives at home. *HR controlled, mildly bradycardic. Hold Amiodarone. Monitor HR. Continue low dose Eliquis. *Transaminitis is improving. Holding Amiodarone, Statins. Assess CPK. GB sono was negative. Repeat CMP in AM. Continue monitoring, strengthening. May need SNU or rehab post acute stay due to her frail status. 09/29/17 Rhythm changed to A. fib last night, rate has been slightly tachycardic. Amiodarone has been on hold because of elevated liver enzymes. Continue Eliquis. Madelyn is orthostatic with her supine blood pressure at 116/66 and standing 90/ 64. In addition, heart rate increased from 101-114 with change in position. Dr. Cruz has ordered a 1 L fluid bolus. Amlodipine (started yesterday) has been discontinued. LFTs continue to trend down. AST is 136, ALT 642. CMV and EBV serologies are pending. Potassium is slightly low at 3.5 and K-Dur has been ordered. Repeat chest x-ray this morning shows an improving right lower lobe pneumonia. However, there is a developing left lower lobe atelectasis versus pneumonia. Continue Rocephin and doxycycline. Tamiflu course has been completed. Continue with inpatient therapy. Suspect she may need prison at time of discharge. PLAN - 09/30/17: Telemetry reveals sinus rhythm. Amiodarone remains on hold due to transaminitis. Continue to monitor closely. Orthostatic hypotension resolved with 1L NS. Continue to monitor closely due to increased risk of falls. Amlodipine discontinued 09/29/17. LFTs trending down. Continue to monitor. CMV and EBV serologies are pending. Potassium is slightly low at 3.3 - KCl 40 mEq po given now. Recheck in AM. Repeat chest x-ray this morning shows persistent trace bilateral pleural effusions with improvement in bibasilar subsegmental atelectasis with no definite lobar consolidation to suggest pneumonia. Patient remains afebrile with clinical improvement. Will continue Rocephin and doxycycline at this time, day #3 and discuss possible discontinuation with Dr. Barillas. Tamiflu course completed 09/29/17. Continue respiratory cares, nebulizer treatments and mucinex for cough. Continue with inpatient therapy. Suspect she may need prison at time of discharge. Recheck CBC and CMP in AM to monitor blood counts, electrolytes, renal function and LFTs.
[2017-09-30] MEDS: CEFTRIAXONE 1 G in NS 100 ML IV SCH (11:27)
[2017-09-30] MEDS: GUAIFENESIN LA 600 MG TABLET PO SCH ×2 (11:28→21:58)
[2017-09-30] MEDS: SENNA + DOCUSATE TABLET PO SCH ×2 (11:29→21:58)
[2017-09-30] MEDS: POLYETHYL GLYCOL 3350 17gm PACKET PO SCH (11:29)
[2017-09-30] MEDS: SALINE FLUSH 10ml SYRINGE IVF PRN (21:58)
[2017-09-30] MEDS: FAMOTIDINE 20 MG TABLET PO SCH (21:58)
[2017-10-01] MEDS: LEVOTHYROXINE 112 MCG TABLET PO SCH (06:14)
[2017-10-01] MEDS: SALINE FLUSH 10ml SYRINGE IVF PRN (06:14)
[2017-10-01] MEDS: ALBUTEROL/IPRATROPIUM 2.5mg-0.5mg/3ml NEB AEROSOL SCH ×2 (07:03→10:37)
[2017-10-01 07:06] VITALS: RESP 16
[2017-10-01 08:28] VITALS: TEMP 97.5
[2017-10-01] MEDS: POLYETHYL GLYCOL 3350 17gm PACKET PO SCH (08:30)
[2017-10-01] MEDS: SENNA + DOCUSATE TABLET PO SCH (08:30)
[2017-10-01] MEDS: GUAIFENESIN LA 600 MG TABLET PO SCH (08:30)
[2017-10-01] MEDS: APIXABAN 2.5 MG TABLET PO SCH (08:30)
[2017-10-01] MEDS: CITALOPRAM 20 MG TABLET PO SCH (08:30)
[2017-10-01] MEDS ORDERED: CETIRIZINE 10 MG TABLET PO SCH (09:00)
[2017-10-01] MEDS ORDERED: AMIODARONE 200 MG TABLET PO SCH (09:00)
[2017-10-01 10:41] VITALS: O2SAT 94
[2017-10-01 11:00] VITALS: BP 121/76; PULSE 83
--- NOTE | 2017-10-01 11:41 | Discharge Summary ---
Discharge Information Date of admission: 09/24/17 19:49 Anticipated date of discharge: 10/01/17 Attending Physician: Shwetha Barillas MD Primary care physician: Laura Hartmann MD Consults: - Discharge Diagnosis (1) Influenza A Status: Acute (2) Hyponatremia Status: Resolved (3) Transaminitis Status: Acute Acute respiratory insufficiency with hypoxia, present on admission Influenza A. Hypertension Transaminitis - improving. Generalized weakness. Dysphasia. Paroxysmal atrial fibrillation. Dyslipidemia. Hypothyroidism-TSH 4.94, freeT4 1.91, 08/20/17. GERD. Hypoxia - resolved. Hypokalemia - resolved. Hyponatremia, symptomatic - resolved. Dehydration - resolved. History of CVA. Anemia, unspecified, stable Pneumonia-ruled out - Laboratory Labs: On admission 09/24/17: Sodium 128, AST 2582, ALT 2947, bilirubin 1.1, alkaline phosphatase 71, acetaminophen level nondetectable, Respiratory viral panel negative other than influenza A on 09/25/17 Serologies for CMV/EBV consistent with past infections-IgG's positive for both. 10/01/17 03:54 10/01/17 03:54 - Microbiology Microbiology 09/29/17 05:50 Urine Streptococcus pneumoniae Antigen (M - Final: NEGATIVE) - Radiology Radiology: Date of Exam: 09/24/17 Type of Exam(s): CT head/brain wo con Reason for Exam(s): severe weakness and confusion after a fall 2 days ago FINDINGS: Generalized atrophy. The ventricles are stable. There are extensive areas of low attenuation in the white matter which most likely represent changes from chronic microvascular ischemia. The brainstem, cerebellum, and cerebral hemispheres otherwise have a normal morphology and CT attenuation. There is no evidence of midline displacement. No hemorrhage, signs of acute territorial stroke, mass effect, mass lesions, or edema is evident. The visualized portions of the skull base, midface, and calvarium demonstrate no abnormality. Small amount of fluid in left maxillary sinus. The tympanic and mastoid cavities appear normal. IMPRESSION: No acute intracranial abnormality or hemorrhage. Stable head CT. Date of Exam: 09/26/17 Type of Exam(s): US gall bladder Reason for Exam(s): abnormal liver enzymes, tender RUQ Findings: Hepatic parenchyma is homogeneous without evidence for focal mass. The gallbladder is normal. There is no wall thickening, pericholecystic fluid, sonographic Villaseñor's sign or cholelithiasis. Both the intra and extrahepatic biliary system are of normal caliber with the common duct measuring 8 mm in dimension. Visualized portions of the head and body of the pancreas are unremarkable. The right kidney is present without collecting system dilatation. The right kidney measures 11.9 cm in length. Multiple simple appearing right renal cysts. Impression: Negative right upper quadrant sonogram. Date of Exam: 09/26/17 Type of Exam(s): XR chest 1V Reason for Exam(s): hypoxia, influenza A Findings: Scattered calcified granulomas. No focal consolidative pneumonia. No pleural effusion or pneumothorax. Heart size, pulmonary vascularity and mediastinal contours are within normal limits. Impression: Stable chest without acute cardiopulmonary disease. Date of Exam: 09/27/17 Type of Exam(s): XR chest 1V Reason for Exam(s): crackles Findings: Increasing airspace opacity in the right lower lobe with senescent changes and emphysema. No definite effusion. No pneumothorax. Heart size and mediastinal contours are stable. Pulmonary vascularity is unchanged. Impression: Developing right lower lobe atelectasis or pneumonia. -- Date of Exam: 09/29/17 Type of Exam(s): XR chest 2V Reason for Exam(s): Pneumonia FINDINGS: Improving right lower lobe airspace with developing left lower lobe airspace disease is evident. Small bilateral pleural effusions are present. There is no pneumothorax. The cardiac silhouette is stable and the pulmonary vasculature is within normal limits. No mediastinal abnormality is present. IMPRESSION: 1. Improving right lower lobe with developing left lower lobe subsegmental atelectasis versus pneumonia. 2. Small bilateral pleural effusions. ---- Date of Exam: 09/30/17 Type of Exam(s): XR chest 2V Reason for Exam(s): pneumonia vs atelectasis Findings: There are trace bilateral pleural effusions. Heart size is normal. There is improvement in the bibasilar subsegmental atelectasis without lobar consolidation. No definite mediastinal or hilar adenopathy. Trachea is midline. No subdiaphragmatic free air. There is mild tortuosity of the descending thoracic aorta. Impression: Persistent trace bilateral pleural effusions with improvement in the bibasilar subsegmental atelectasis. No definite lobar consolidation to suggest pneumonia. ------ History of Present Illness HPI: Mrs. Garvey is a 87-year-old female who was evaluated in the emergency room on 09/22/17 after a syncopal event. Blood pressure was unremarkable at that time and she was treated with IV fluids and discharged home after workup was nonrevealing. Patient reports that she has had persistent weakness and had been very sleepy/tired since that time and that symptoms really date back about a week. She additionally has had a cough with some sputum production and has felt cold although feeling cold is chronic. Oral intake has been poor and patient reports she slept most of the time for the past couple of days. She denies being dizzy or having pain or palpitations. She denies nausea or vomiting and has had no diarrhea. She is not aware of fever and denied having sweats. No recent change in medications. A friend checked on the patient yesterday, 09/24/17 , and the patient did not answer the door and was subsequently found and felt to be confused. Patient subsequently was transferred to [facility] [place] for further evaluation where she was found to have sodium of 128 and elevation in transaminases in conjunction with dehydration and a positive influenza A swab. She was admitted to the hospitalist service for further evaluation and management. Objective Vital signs: Temperature 97.5 F 10/01/17 08:00 Pulse Rate 83 10/01/17 10:58 Respiratory Rate 16 10/01/17 10:37 Blood Pressure 121/76 10/01/17 10:58 Pulse Oximetry 94 10/01/17 10:37 Rhythm: Normal Sinus Rhythm Height/Weight/BMI: Height 5 ft 1 in Weight 109 lb 2.061 oz Body Mass Index 20.6 Comments: Patient is seen while sitting up in her recliner, watching TV. - Constitutional Present: no acute distress, well nourished, well developed, thin, cooperative - Routine HEENT Exam Head: Present: normocephalic, atraumatic Eye: Present: PERRL. Absent: conjunctival icterus ENT: Present: mucous membranes moist - Routine Respiratory Exam Present: decreased breath sounds (right base). Absent: respiratory distress, wheezes Comments: No cough or conversational dyspnea; breathing easily on room air. - Routine Cardiovascular Exam Present: RRR, S1, S2 - Routine Abdominal Exam Present: soft, normoactive bowel sounds, non distended, non tender - Routine Extremities Exam Present: edema (trace), pulses intact - Routine Back/Spine/Pelvis Exam Back/Spine: Present: full ROM. Absent: vertebral tenderness - Routine Musculoskeletal Exam Musculoskeletal: Present: moving extremities well - Routine Skin Exam Present: intact, dry, warm Comments: Afebrile. - Routine Neurological Exam Present: alert, oriented X3, moving all extremities, hearing grossly intact, normal speech - Routine Lymphatic Exam Lymphatic: Absent: lymphedema - Routine Psychiatric Exam Present: normal affect, cooperative, good insight, good judgment Hospital Course This is a general summary of the patient's hospital course. For more details refer to the complete medical record. Hospital course: Patient was admitted under the care of the hospitalist service as an inpatient. She was gently hydrated with IV fluids including potassium supplementation. Her FeNa was 0.5, consistent with dehydration. Urine sodium is low also suggesting dehydration is contributing to hyponatremia although review of prior labs suggests sodium has typically run in the low 130s for the past 3 years or longer. Influenza may account for patient's feelings of weakness and fatigue but is typically not associated with significant abnormalities in liver enzymes. Respiratory panel was obtained and confirmed Influenza A (H3) in the absence of other viral respiratory infections. Tamiflu was initiated and treatment complete after 5 days. At the time of admission, she was noted to have acute respiratory insufficency with hypoxia which required 1-2 L supplemental oxygen intermittently. Hypotension has not been documented but given poor oral intake and recent syncope and hypotension cannot fully be excluded either with poor perfusion and shock liver as potential causes for abnormal liver enzymes. Gallstones unlikely given pattern of enzyme abnormality seen but the patient is tender in the right upper quadrant and guards when Villaseñor's testing performed. Gallbladder sonogram was obtained and was unremarkable. Home medications reviewed and multiple medications were placed on hold due to abnormal liver enzymes including statin, PPI, and amiodarone. Acute hepatitis serologies were negative and CMV IGG Ab and EBV Capsid Ag IgG Ab, but nothing acute. She was monitor closely on telemetry which revealed paroxysmal a-fib on at least 3 different occasions during her acute hospitalization. She has a known history of a-fib and follows with Dr. Cedillo. Due to her recent syncopal episode and bradycardia, her home metoprolol 25mg daily was held. With hydration and supplementation, her electrolytes normalized and remained stable. LFTs continued to improve and trend down. Her hypoxia resolved and she remained stable on her baseline of room air. Chest x-ray was closely monitored throughout her admission. On 09/28/17, patient complained of feeling more ill with increased fatigue and weakness. Repeat CXR at that time revealed developing infiltrate/atelectasis and she was started on Ceftriaxone and doxycycline. Antibiotics were discontinued 48 hours later when repeat film was unremarkable. There is no indication of fever, sputum production, or leukocytosis during this time. An atelectasis was believed to be cause of changes seen on the prior film. On 09/29/17, she was noted to be orthostatic which improved with 1L NS bolus. Given her prolonged illness and increasing weakness, PT/OT were consulted and continued to assist the patient with maintaining her strength and functional ability during her hospitalization. PT recommended home health at time of discharge. Case management discussed multiple discharge plans and patient elected to return home with home health as well as meals on wheels. She does qualify for home health assessment for in home services through the [facility] which case management was arranging. Patient also explored the option of private services for a few days until her home health assessment was complete. She will be discharged home with home health today, 10/01/17. Given her episodes of a-fib, Dr. Cedillo recommended restarting her home metoprolol at the lower dose of 12.5mg daily and recommended she follow up with him in the clinic in 3 weeks. Time spent with patient: greater than 35 minutes Resuscitation Status: Full Code Discharge Plan - Discharge Disposition Discharge Date: 10/01/17 Disposition: 86 Home Health Service *Condition: Stable Reason For Visit (Visit label in EMR): Hyponatremia / Transaminitis - Discharge Medications *Discharge Medications: New Metoprolol Tartrate [Lopressor] 12.5 mg PO WB #30 tab PEG 3350 17gm PACKET [Miralax] 17 gm PO DAILY PRN #30 packet PRN Reason: Constipation Guaifenesin LA [Mucinex LA] 1,200 mg PO BID tab Menthol Cough Drops [Ricola Sf] 1 lozenge MM PRN PRN lozenge PRN Reason: Cough Continue Apixaban [Eliquis] 2.5 mg PO BID #0 Ascorbate Calcium [Vitamin C] 500 mg PO BID Vitamin E 200 unit PO DAILY Levothyroxine Tab [Synthroid] 112 mcg PO ACB Pantoprazole Tab [Protonix Tab] 40 mg PO ACB Cetirizine HCl [All Day Allergy] 10 mg PO DAILY Calcium Carbonate/Vitamin D3 [Caltrate 600 Plus D3 Tablet] 1 tab PO BID #0 Multivitamin [One Daily Multivitamin] 1 tab PO DAILY Amiodarone [Pacerone] 200 mg PO DAILY Citalopram [Celexa] 20 mg PO DAILY Discontinued Naproxen Sodium [Aleve] 220 mg PO BID PRN PRN Reason: Pain Atorvastatin Calcium 40 mg PO HS #0 tab - Discharge Packet/Instructions *Diet: Regular diet. *Activity: As tolerated. *Pain Management/Treatment: Ibuprofen 400mg every 6 hours as needed for pain/ fever. *Wound Care: None Additional Instructions: Follow up with Dr. Hartmann on 10/06/17 at 4:30 in the clinic. Follow up with Dr. Cedillo in 3 weeks - please call to schedule appointment. You home metoprolol titrate has been restarted on 10/01/17 at a decreased dose of 12.5mg every morning. You home Protonix and Amiodarone 200mg daily remain on hold due to your elevated liver enzymes. Do not resume until instructed by Dr. Hartmann. Rest, maintain good oral intake. *Expected Signs/Symptoms: Gradual improvement with resolution of symptoms and return to baseline functional abilities. *Notify Physician if: Fever >100.8, increased shortness of breath, chest pain, dizziness, lightheadedness, passing out or near passing out, change or worsening of condition, additional questions or concerns. *During Business Hours Contact: Dr. Hartmann at [phone]. *After Business Hours Contact: the on-call physician for Dr. Hartmann at [phone] or contact the nearest emergency room. *Pending Lab/Results: No Pending Lab - Referrals/Follow Up *Referrals/Follow Up: Fortino Cedillo MD [Physician] - 10/23/17 10:50 am (Follow up on hospital stay as well as reduced dose of metoprolol at 12.5mg daily started on 10/01/17 and a- fib.) Laura Hartmann MD [Family Provider] - 10/06/17 4:30 pm - Patient Handouts Patient Handouts: Hyponatremia (GEN), Influenza (DC), Community Acquired Pneumonia (DC) - Dismissal Complete Discharge Instructions are:: Complete Physician Narrative - Narrative Attestation Narrative: Date: 10/01/17 Time: 2100 I have independently evaluated and examined this patient. I reviewed the chart, the patient's history, and the [employer]/PA's documented findings as above. We discussed and formulated the assessment and plan as above with additions as below: Mrs. Garvey was initially hospitalized with hyponatremia, transaminitis, and influenza A. Hospital course was complicated by excess fatigue and weakness; atelectasis on chest x-ray initially interpreted as infiltrate, and brief episodes of paroxysmal atrial fibrillation/flutter. On the date of discharge the patient denies dyspnea or lightheadedness but reports awareness of palpitations earlier today when she was in flutter for about 2-3 minutes before spontaneously reverting back to sinus rhythm. Rate was 100-110 while in flutter. Episodes of tachyarrhythmia were discussed with cardiology and amiodarone resumed in conjunction with low-dose metoprolol prior to discharge. Transaminases improved progressively through the hospitalization from AST/ALT of upper 2006 to AST 83 and ALT 411 at discharge. Given negative findings on workup it is likely that shock liver accounts for this abnormality due to hypotension or hypoxia prior to hospitalization. Influenza A has been associated with elevated transaminases but typically not to the degree seen here and most reports indicate association with pandemic H1 N1 which the patient did not have. On the date of discharge the patient was alert and cooperative. Respirations were nonlabored with good airflow and clear breath sounds Cardiac rhythm was regular at the time of my evaluation and abdomen soft. Due to change in her neighbor's health status alternate arrangements are being coordinated to provide assistance at the patient's home. These are outlined above but assisted living may need to be considered in the future. Patient is stable for discharge at this time and is asked to follow up with Dr. Hartmann in one week and Dr. Cedillo in approximately 3 weeks.
== END 2017-10-01 14:14 | disposition home health service (06) | DRG 193 ==
LOC: ED 17:37 → SUATTDRO 19:49 → MED 19:49
PROVIDERS: ADMIT Hospitalist; ATTEND Internal Medicine